=== PATIENT | male | born 1965 | race Caucasian/White ===

== ENCOUNTER 2018-09-17 17:20 | Inpatient (IN) | payer MEDICAID ==
[~2018-09-17] VITALS: Ht 165.1 cm; Wt 63.5 kg
[~2018-09-17 17:20] MED LIST: ACETAMINOPHEN-1 EAC1 ORAL; BACTRIM DS TAB1 EAC1 ORAL; CEPHALEXIN500 MG ORAL; IBUPROFEN200 M2 ORAL; NKM
[2018-09-17] MEDS ORDERED: UNOBMED (17:31)
[2018-09-17 17:36] VITALS: BP 124/76
[2018-09-17 18:40] LABS: ANION GAP 9 mmol/L (5-15); BLOOD UREA NITROGEN 4 mg/dL (7-18); CALCIUM 7.8 MG/DL (8.5-10.1); CARBON DIOXIDE 29 MMOL/L (21-32); CHLORIDE 96 MMOL/L (98-107); CREATININE 0.8 MG/DL (0.55-1.30); POTASSIUM 3.4 MMOL/L (3.5-5.1); SODIUM 133 MMOL/L (136-145)
[2018-09-17 18:51] LABS: ALANINE AMINOTRANSFERASE 204 U/L (12-78); ALBUMIN 2.6 G/DL (3.4-5.0); ALBUMIN/GLOBULIN RATIO 0.6 (1.0-2.7); ALKALINE PHOSPHATASE 147 U/L (46-116); ASPARTATE AMINO TRANSFERASE 459 U/L (15-37); BILIRUBIN,TOTAL 7.3 MG/DL (0.2-1.0)
[2018-09-17 19:03] LABS: BILIRUBIN,DIRECT 5.1 MG/DL (0.0-0.3)
[2018-09-17 19:31] VITALS: BP 119/71
[2018-09-17 19:36] LABS: HEMATOCRIT 31.9 % (42.0-52.0); HEMOGLOBIN 11.2 G/DL (14.2-18.0); MEAN CORPUSCULAR VOLUME 97 FL (80-99); PLATELET COUNT 27 K/UL (150-450); RED CELL DISTRIBUTION WIDTH 15.9 % (11.6-14.8)
[2018-09-17 19:50] LABS: INR 2.2 (0.9-1.1)
--- NOTE | 2018-09-17 19:51 | Emergency Room Report ---
History of Present Illness General Chief Complaint: Nosebleed Source: Patient (Marysol Mccord) Present Illness HPI 52-year-old male presents with intermittent nosebleeds for the past 5 days. States that he has been bleeding from his left turbinates. States that the bleeding is self-limiting but last for about 10-15 minutes at a time. Patient also has a decreased appetite with frontal sinus pressure. Patient states that he has no modifying factors or symptoms. Denies any current n/v/f/c/d, abd pain , back pain, neck pain, photophobia, phonophobia, CP, or SOB (Marysol Mccord) Allergies: Coded Allergies: No Known Allergies (Unverified , 09/17/18) Patient History Past Medical History: see triage record Past Surgical History: none Pertinent Family History: none Reviewed Nursing Documentation: PMH: Agreed; PSxH: Agreed (Marysol Mccord) Nursing Documentation-PMH Past Medical History: No History, Except For Hx Cardiac Problems: No Hx Cancer: Yes Hx Gastrointestinal Problems: Yes - GASTRITIS, HYPERLIPIDEMIA Hx Neurological Problems: No - Cramps (Marysol Mccord) Review of Systems All Other Systems: negative except mentioned in HPI (Marysol Mccord) Physical Exam Vital Signs Date Time Temp Pulse Resp B/P (MAP) Pulse Ox O2 Delivery O2 Flow Rate FiO2 09/17/18 17:27 99.1 120 18 127/80 96 Room Air Sp02 EP Interpretation: reviewed, normal General Appearance: no apparent distress, alert, GCS 15, non-toxic Head: normocephalic, atraumatic Eyes: bilateral eye normal inspection, bilateral eye PERRL ENT: hearing grossly normal, normal pharynx, no angioedema, normal voice, TMs + canals normal, other - Gross dried blood from left turbinate. No active bleeding noted. Neck: full range of motion, supple/symm/no masses Respiratory: chest non-tender, lungs clear, normal breath sounds, speaking full sentences Cardiovascular #1: regular rate, rhythm, no edema Musculoskeletal: back normal, gait/station normal, normal range of motion Neurologic: alert, oriented x3, responsive, motor strength/tone normal, sensory intact, speech normal Skin: normal color, no rash, warm/dry, well hydrated (Marysol Mccord) Medical Decision Making PA Attestation Dr. Toussaint is my supervising physician with whom patient management has been discussed with. (Marysol Mccord) Medicare Attestation Patient was seen and examined by myself as well, patient is an extremity poor historian, review of medical records reveals significant cirrhosis, liver disease, initially patient reports that he has no other medical history other than gastritis. On further questioning patient now reports that he was at a clinic 6 months ago, reports that he was told that he had cirrhosis, patient's blood work today shows worsening findings with total bilirubin over 7.0, patient initially also denied alcohol intake, however the mother at bedside reports the patient drinks on a regular basis and is still drinking on a regular basis. Given the worsening findings patient's coagulopathy, further hydration was provided and patient requires further inpatient care, (Sharon Toussaint DO) Diagnostic Impression: Primary Impression: Liver failure Qualified Codes: K72.00 - Acute and subacute hepatic failure without coma Additional Impressions: Cirrhosis Coagulopathy Mild epistaxis ER Course 52-year-old male presents with epistaxis. Patient has a history of liver cirrhosis secondary to alcohol abuse. States that he is still chronic drinker to this day. Patient's last ultrasound evaluation by GI was 6 months ago. He presents today for epistaxis for the past 5 days that is self-limiting and intermittent. He also has nausea and decreased appetite. His CBC shows no serious anemia or signs of sepsis. His metabolic panel shows elevated liver enzymes with some mild electrolyte abnormalities. His total bili is in the sevens concerning for liver failure when compared to his previous labs. Patient also had abnormal coags. Ultrasound was performed which showed right renal cyst, sludge in the gallbladder, no gallbladder wall thickening or biliary duct dilation. The patient care was then assumed by Dr. Toussaint for higher acuity care and admission. Laboratory Tests Test 09/17/18 18:15 09/17/18 19:07 Sodium Level 133 MMOL/L (136-145) L Potassium Level 3.4 MMOL/L (3.5-5.1) L Chloride Level 96 MMOL/L (98-107) L Carbon Dioxide Level 29 MMOL/L (21-32) Anion Gap 9 mmol/L (5-15) Blood Urea Nitrogen 4 mg/dL (7-18) L Creatinine 0.8 MG/DL (0.55-1.30) Estimate Glomerular Filtration Rate > 60 mL/min (>60) Glucose Level 173 MG/DL (74-106) H Calcium Level 7.8 MG/DL (8.5-10.1) L Total Bilirubin 7.3 MG/DL (0.2-1.0) H Direct Bilirubin 5.1 MG/DL (0.0-0.3) H Aspartate Amino Transferase (AST) 459 U/L (15-37) H Alanine Aminotransferase (ALT) 204 U/L (12-78) H Alkaline Phosphatase 147 U/L (46-116) H Total Protein 6.7 G/DL (6.4-8.2) Albumin 2.6 G/DL (3.4-5.0) L Globulin 4.1 g/dL Albumin/Globulin Ratio 0.6 (1.0-2.7) L White Blood Count 7.0 K/UL (4.8-10.8) Red Blood Count 3.30 M/UL (4.70-6.10) L Hemoglobin 11.2 G/DL (14.2-18.0) L Hematocrit 31.9 % (42.0-52.0) L Mean Corpuscular Volume 97 FL (80-99) Mean Corpuscular Hemoglobin 34.0 PG (27.0-31.0) H Mean Corpuscular Hemoglobin Concent 35.1 G/DL (32.0-36.0) Red Cell Distribution Width 15.9 % (11.6-14.8) H Platelet Count 27 K/UL (150-450) L Mean Platelet Volume 10.8 FL (6.5-10.1) H Neutrophils (%) (Auto) % (45.0-75.0) Lymphocytes (%) (Auto) % (20.0-45.0) Monocytes (%) (Auto) % (1.0-10.0) Eosinophils (%) (Auto) % (0.0-3.0) Basophils (%) (Auto) % (0.0-2.0) Neutrophils % (Manual) Pending Lymphocytes % (Manual) Pending Platelet Estimate Pending Platelet Morphology Pending Prothrombin Time 22.1 SEC (9.30-11.50) H Prothrombin Time INR 2.2 (0.9-1.1) H PTT 37 SEC (23-33) H (Marysol Mccord) Labs Test 09/17/18 18:15 09/17/18 19:07 Sodium Level 133 MMOL/L (136-145) Potassium Level 3.4 MMOL/L (3.5-5.1) Chloride Level 96 MMOL/L (98-107) Carbon Dioxide Level 29 MMOL/L (21-32) Anion Gap 9 mmol/L (5-15) Blood Urea Nitrogen 4 mg/dL (7-18) Creatinine 0.8 MG/DL (0.55-1.30) Estimat Glomerular Filtration Rate > 60 mL/min (>60) Glucose Level 173 MG/DL (74-106) Calcium Level 7.8 MG/DL (8.5-10.1) Total Bilirubin 7.3 MG/DL (0.2-1.0) Direct Bilirubin 5.1 MG/DL (0.0-0.3) Aspartate Amino Transf (AST/SGOT) 459 U/L (15-37) Alanine Aminotransferase (ALT/SGPT) 204 U/L (12-78) Alkaline Phosphatase 147 U/L (46-116) Total Protein 6.7 G/DL (6.4-8.2) Albumin 2.6 G/DL (3.4-5.0) Globulin 4.1 g/dL Albumin/Globulin Ratio 0.6 (1.0-2.7) White Blood Count 7.0 K/UL (4.8-10.8) Red Blood Count 3.30 M/UL (4.70-6.10) Hemoglobin 11.2 G/DL (14.2-18.0) Hematocrit 31.9 % (42.0-52.0) Mean Corpuscular Volume 97 FL (80-99) Mean Corpuscular Hemoglobin 34.0 PG (27.0-31.0) Mean Corpuscular Hemoglobin Concent 35.1 G/DL (32.0-36.0) Red Cell Distribution Width 15.9 % (11.6-14.8) Platelet Count 27 K/UL (150-450) Mean Platelet Volume 10.8 FL (6.5-10.1) Neutrophils (%) (Auto) % (45.0-75.0) Lymphocytes (%) (Auto) % (20.0-45.0) Monocytes (%) (Auto) % (1.0-10.0) Eosinophils (%) (Auto) % (0.0-3.0) Basophils (%) (Auto) % (0.0-2.0) Differential Total Cells Counted 100 Neutrophils % (Manual) 38 % (45-75) Lymphocytes % (Manual) 50 % (20-45) Monocytes % (Manual) 9 % (1-10) Eosinophils % (Manual) 2 % (0-3) Basophils % (Manual) 1 % (0-2) Band Neutrophils 0 % (0-8) Platelet Estimate Decreased Platelet Morphology Normal Hypochromasia 1+ Anisocytosis 1+ Prothrombin Time 22.1 SEC (9.30-11.50) Prothromb Time International Ratio 2.2 (0.9-1.1) Activated Partial Thromboplast Time 37 SEC (23-33) (Sharon Toussaint DO) Rhythm Strip Diag. Results EP Interpretation: yes Rate: 110 Rhythm: no PVC's, no ectopy, other - Sinus tach (Sharon Toussaint DO) CT/MRI/US Diagnostic Results CT/MRI/US Diagnostic Results : Imaging Test Ordered: CT Head w/o Contrast Impression CT HEAD Without Contrast: No intracranial hemorrhage, mass effect or CT evidence of acute infarct Ventricles are within limits and midline Small mucous retention cyst visualized left maxillary sinus Mastoids are clear (Marysol Mccord) Last Vital Signs Date Time Temp Pulse Resp B/P (MAP) Pulse Ox O2 Delivery O2 Flow Rate FiO2 09/17/18 17:36 98.9 108 16 124/76 98 Room Air (Marysol Mccord) Status: improved (Sharon Toussaint DO) Disposition: XFER SHT-TRM HOSP Condition: Serious Marysol Mccord Sep 17, 2018 19:51 Sharon Toussaint DO Sep 17, 2018 21:25
[2018-09-17] MEDS ORDERED: LORazepam Inj 2mg/ml 1ml IV ONE (21:30)
[2018-09-17] MEDS ORDERED: Thiamine 100mg tab ORAL ONE (21:30)
[2018-09-17 21:36] VITALS: BP 103/64
[2018-09-18] MEDS ORDERED: Morphine Sulfate 2mg/ml Inj(IV/IM USE ONLY) IVP PRN (00:15)
[2018-09-18] MEDS ORDERED: Folic Acid 1 MG, Magnesium Sulfate 2,000 MG, Multivitamin - 12 Injection 10 ML in Sodiu... IV ONE ×2 (00:15→09:00)
[2018-09-18 00:30] VITALS: BP 119/77
[2018-09-18] MEDS ORDERED: Thiamine 100mg in D5W 55ml IVPB SCH ×2 (00:30→09:00)
[2018-09-18 04:00] VITALS: BP 133/85
[2018-09-18 07:31] LABS: HEMOGLOBIN 11.6 G/DL (14.2-18.0); MEAN CORPUSCULAR VOLUME 98 FL (80-99)
[2018-09-18 07:42] LABS: ANION GAP 9 mmol/L (5-15); BLOOD UREA NITROGEN 4 mg/dL (7-18); CALCIUM 7.4 MG/DL (8.5-10.1); CARBON DIOXIDE 28 MMOL/L (21-32); CHLORIDE 99 MMOL/L (98-107); CREATININE 0.7 MG/DL (0.55-1.30); POTASSIUM 3.6 MMOL/L (3.5-5.1); SODIUM 136 MMOL/L (136-145)
[2018-09-18 07:44] LABS: HEMATOCRIT 33.8 % (42.0-52.0); PLATELET COUNT 31 K/UL (150-450); RED BLOOD COUNT 3.45 M/UL (4.70-6.10); RED CELL DISTRIBUTION WIDTH 16.7 % (11.6-14.8)
[2018-09-18 08:00] VITALS: BP 126/79
--- NOTE | 2018-09-18 08:41 | Consultation ---
Consult Note Consult Note asked to eval at the request of Dr Lucia for fluid managemeny and low Na Chief Complaint: Nosebleed 52-year-old male presents with intermittent nosebleeds for the past 5 days. States that he has been bleeding from his left turbinates. States that the bleeding is self-limiting but last for about 10-15 minutes at a time. Patient also has a decreased appetite with frontal sinus pressure. Patient states that he has no modifying factors or symptoms. Denies any current n/v/f/c/d, abd pain , back pain, neck pain, photophobia, phonophobia, CP, or SOB No Known Allergies (Unverified , 09/17/18) Past Medical History: No History, Except For Hx Gastrointestinal Problems: Yes - GASTRITIS, HYPERLIPIDEMIA Hx Neurological Problems: No - Cramps examined Turkish speaker has liver cirrhosis stigmata Assessment/Plan Coagulopathy due to liver pathology: INR 2.2 Thrombocytopenia due to cirrhosis mild anemia mild epistaxis mild HypoNatremia due to cirrhosis and low Albumin High LFTs abd Bili lactulose protonix Aldactone per GI and Hematology Vit K 2gr Na diet Serg Baumann MD Sep 18, 2018 08:41
--- NOTE | 2018-09-18 09:05 | Diagnostic Imaging Report ---
Indication: Headache, pain Technique: Continuous helical CT scanning of the head was performed utilizing automated exposure control without intravenous contrast material. Axial and coronal reconstructions were obtained. Comparison: None CT dose: Total DLP 1432.39 mGycm; CTDI vol 70.38 mGy Findings: There is no acute intracranial hemorrhage, mass effect or cortical edema. There is no shift of the midline structures. The ventricles, cisterns and sulci are within normal limits for age. Visualized mastoid air cells are clear. A small mucus retention cyst is visualized in the left maxillary sinus. Remainder the visualized paranasal sinuses are clear. Imaged portions of the orbits grossly unremarkable. No focal lesions of the bony calvarium or soft tissues of the scalp are seen. Impression: No evidence of acute intracranial hemorrhage, mass effect, midline shift or CT evidence of acute territorial infarct. MRI may be obtained for more sensitive evaluation as clinically indicated. Small mucous retention cyst in the left maxillary sinus. This corresponds with the [facility]rad preliminary report. The CT scanner at [facility] is accredited by the [employer] and the scans are performed using protocols designed to limit radiation exposure to as low as reasonably achievable to attain images of sufficient resolution adequate for diagnostic evaluation.
[2018-09-18] MEDS: Lactulose 20gm/30ml UDC ORAL SCH ×3 (09:26→17:54)
[2018-09-18] MEDS: Spironolactone 25mg tab ORAL SCH ×2 (09:26→23:02)
[2018-09-18] MEDS: Thiamine 100mg tab ORAL SCH (09:26)
[2018-09-18 09:58] LABS: AMMONIA 48 umol/L (11-32)
[2018-09-18 10:07] LABS: APPEARANCE,URINE CLEAR; BILIRUBIN, URINE NEGATIVE (NEGATIVE); COLOR,URINE BROWN; GLUCOSE, URINE (UA) NEGATIVE (NEGATIVE); KETONES,URINE NEGATIVE (NEGATIVE); LEUKOCYTE ESTERASE ,URINE NEGATIVE (NEGATIVE); NITRITE,URINE NEGATIVE (NEGATIVE); PH,URINE 7 (4.5-8.0); PROTEIN,URINE NEGATIVE (NEGATIVE); UROBILINOGEN,URINE 4 MG/DL (0.0-1.0)
[2018-09-18 10:13] LABS: ALANINE AMINOTRANSFERASE 208 U/L (12-78); ALBUMIN 2.6 G/DL (3.4-5.0); ALKALINE PHOSPHATASE 149 U/L (46-116); ASPARTATE AMINO TRANSFERASE 441 U/L (15-37); BILIRUBIN,DIRECT 4.3 MG/DL (0.0-0.3); BILIRUBIN,TOTAL 7.1 MG/DL (0.2-1.0); CHOLESTEROL 101 MG/DL (< 200); GAMMA GLUTAMYL TRANSPEPTIDASE 1980 U/L (5-85); HDL CHOLESTEROL 8 MG/DL (40-60); TRIGLYCERIDES 214 MG/DL (30-150)
[2018-09-18] MEDS: Phytonadione 10 mg/mL 1ml amp SUBQ SCH (10:17)
--- NOTE | 2018-09-18 10:30 | GI Initial Consult Note ---
History of Present Illness General Date patient seen: Sep 18, 2018 Time patient seen: 10:25 Reason for Hospitalization: Nosebleed Referring physician: ANALY DELONG Reason for Consultation: Cirrhosis Present Illness HPI 52-year-old male presents with intermittent nosebleeds for the past 5 days. States that he has been bleeding from his left turbinates. States that the bleeding is self-limiting but last for about 10-15 minutes at a time. Patient also has a decreased appetite with frontal sinus pressure. Patient states that he has no modifying factors or symptoms. Denies any current n/v/f/c/d, abd pain , back pain, neck pain, photophobia, phonophobia, CP, or SOB GI consulted for cirrhosis. Patient seen, awake alert and oriented x4 no apparent distress with no active signs of nausea or vomiting. Patient presents with active epistaxis. Patient denies any abdominal pain, denies any nausea vomiting or diarrhea. Patient has a history of alcohol abuse, stated his last alcoholic drink was yesterday. Labs reviewed; white count of 4, hemoglobin of 11, platelet count of 31, INR of 2.2. Patient denies any history of endoscopic or colonoscopy Home Meds Reported Medications Unable to Obtain Medications (UNABLE TO OBTAIN MEDS) 1 Ea Ea 09/17/18 Acetaminophen With Codeine (T#3) (TYLENOL #3 TAB*) 1 Each Tablet, 2 TAB ORAL Q6H PRN for For Pain, TAB 11/19/13 Acetaminophen With Codeine (T#3) (TYLENOL #3 TAB*) 1 Each Tablet, 1 TAB ORAL Q4H PRN for For Pain, TAB 11/19/13 Med list reviewed/reconciled: Yes Allergies: Coded Allergies: No Known Allergies (Unverified , 09/17/18) Patient History History Provided By: Patient, Medical Record PMH Narrative Hx Cardiac Problems: No Hx Cancer: Yes Hx Gastrointestinal Problems: Yes - GASTRITIS, HYPERLIPIDEMIA Hx Neurological Problems: No - Cramps Past Surgical History: none Social History: Reports: alcohol use Review of Systems All Other Systems: negative except mentioned in HPI Physical Exam Vital Signs Date Time Temp Pulse Resp B/P (MAP) Pulse Ox O2 Delivery O2 Flow Rate FiO2 09/17/18 17:27 99.1 120 18 127/80 96 Room Air Sp02 EP Interpretation: reviewed, normal Labs Laboratory Tests Test 4/16/19 18:15 09/17/18:07 09/18/18 07:25 09/18/18 09:20 Sodium Level 133 MMOL/L (136-145) L 136 MMOL/L (136-145) Potassium Level 3.4 MMOL/L (3.5-5.1) L 3.6 MMOL/L (3.5-5.1) Chloride Level 96 MMOL/L (98-107) L 99 MMOL/L (98-107) Carbon Dioxide Level 29 MMOL/L (21-32) 28 MMOL/L (21-32) Anion Gap 9 mmol/L (5-15) 9 mmol/L (5-15) Blood Urea Nitrogen 4 mg/dL (7-18) L 4 mg/dL (7-18) L Creatinine 0.8 MG/DL (0.55-1.30) 0.7 MG/DL (0.55-1.30) Estimat Glomerular Filtration Rate > 60 mL/min (>60) > 60 mL/min (>60) Glucose Level 173 MG/DL (74-106) H 112 MG/DL (74-106) H Calcium Level 7.8 MG/DL (8.5-10.1) L 7.4 MG/DL (8.5-10.1) L Total Bilirubin 7.3 MG/DL (0.2-1.0) H 7.1 MG/DL (0.2-1.0) H Direct Bilirubin 5.1 MG/DL (0.0-0.3) H 4.3 MG/DL (0.0-0.3) H Aspartate Amino Transf (AST/SGOT) 459 U/L (15-37) H 441 U/L (15-37) H Alanine Aminotransferase (ALT/SGPT) 204 U/L (12-78) H 208 U/L (12-78) H Alkaline Phosphatase 147 U/L (46-116) H 149 U/L (46-116) H Total Protein 6.7 G/DL (6.4-8.2) 6.9 G/DL (6.4-8.2) Albumin 2.6 G/DL (3.4-5.0) L 2.6 G/DL (3.4-5.0) L Globulin 4.1 g/dL Albumin/Globulin Ratio 0.6 (1.0-2.7) L White Blood Count 7.0 K/UL (4.8-10.8) 4.0 K/UL (4.8-10.8) L Red Blood Count 3.30 M/UL (4.70-6.10) L 3.45 M/UL (4.70-6.10) L Hemoglobin 11.2 G/DL (14.2-18.0) L 11.6 G/DL (14.2-18.0) L Hematocrit 31.9 % (42.0-52.0) L 33.8 % (42.0-52.0) L Mean Corpuscular Volume 97 FL (80-99) 98 FL (80-99) Mean Corpuscular Hemoglobin 34.0 PG (27.0-31.0) H 33.6 PG (27.0-31.0) H Mean Corpuscular Hemoglobin Concent 35.1 G/DL (32.0-36.0) 34.3 G/DL (32.0-36.0) Red Cell Distribution Width 15.9 % (11.6-14.8) H 16.7 % (11.6-14.8) H Platelet Count 27 K/UL (150-450) L 31 K/UL (150-450) L Mean Platelet Volume 10.8 FL (6.5-10.1) H 10.6 FL (6.5-10.1) H Neutrophils (%) (Auto) % (45.0-75.0) % (45.0-75.0) Lymphocytes (%) (Auto) % (20.0-45.0) % (20.0-45.0) Monocytes (%) (Auto) % (1.0-10.0) % (1.0-10.0) Eosinophils (%) (Auto) % (0.0-3.0) % (0.0-3.0) Basophils (%) (Auto) % (0.0-2.0) % (0.0-2.0) Differential Total Cells Counted 100 100 Neutrophils % (Manual) 38 % (45-75) L 72 % (45-75) Lymphocytes % (Manual) 50 % (20-45) H 20 % (20-45) Monocytes % (Manual) 9 % (1-10) 4 % (1-10) Eosinophils % (Manual) 2 % (0-3) 1 % (0-3) Basophils % (Manual) 1 % (0-2) 3 % (0-2) H Band Neutrophils 0 % (0-8) 0 % (0-8) Platelet Estimate Decreased L Decreased L Platelet Morphology Normal Normal Hypochromasia 1+ Anisocytosis 1+ Prothrombin Time 22.1 SEC (9.30-11.50) H Prothromb Time International Ratio 2.2 (0.9-1.1) H Activated Partial Thromboplast Time 37 SEC (23-33) H Macrocytosis 1+ Target Cells 3+ Stomatocytes 1+ Urine Color Brown Urine Appearance Clear Urine pH 7 (4.5-8.0) Urine Specific [place] 1.010 (1.005-1.035) Urine Protein Negative (NEGATIVE) Urine Glucose (UA) Negative (NEGATIVE) Urine Ketones Negative (NEGATIVE) Urine Blood 4+ (NEGATIVE) H Urine Nitrite Negative (NEGATIVE) Urine Bilirubin Negative (NEGATIVE) Urine Urobilinogen 4 MG/DL (0.0-1.0) H Urine Leukocyte Esterase Negative (NEGATIVE) Urine RBC 0-2 /HPF (0 - 0) H Urine WBC 0-2 /HPF (0 - 0) Urine Squamous Epithelial Cells Occasional /LPF Urine Bacteria Occasional /HPF (NONE) Urine Random Sodium 120 mmol/L (20-110) H Hemoglobin A1c 5.2 % (4.3-6.0) Uric Acid 5.2 MG/DL (2.6-7.2) Phosphorus Level 3.0 MG/DL (2.5-4.9) Magnesium Level 1.2 MG/DL (1.8-2.4) L Gamma Glutamyl Transpeptidase 1980 U/L (5-85) H Ammonia 48 umol/L (11-32) H C-Reactive Protein, Quantitative < 0.4 mg/dL (0.00-0.90) Pro-B-Type Natriuretic Peptide 27 pg/mL (0-125) Triglycerides Level 214 MG/DL (30-150) H Cholesterol Level 101 MG/DL (< 200) LDL Cholesterol 74 mg/dL (<100) HDL Cholesterol 8 MG/DL (40-60) L Cholesterol/HDL Ratio 12.6 (3.3-4.4) H Vitamin B12 Level Pending Folate Pending Thyroid Stimulating Hormone (TSH) 2.167 uiU/mL (0.358-3.740) General Appearance: well appearing, no apparent distress, alert, other - Jaundice Head: normocephalic EENT: PERRL/EOMI, normal ENT inspection Neck: supple Respiratory: normal breath sounds, no respiratory distress Cardiovascular: normal rate Gastrointestinal: normal inspection, non tender, soft, normal bowel sounds, non -distended Rectal: deferred Genitourinary: deferred Musculoskeletal: normal inspection, back normal Neurologic: normal inspection, alert, oriented x3, responsive Psychiatric: normal inspection, judgement/insight normal, memory normal Skin: normal inspection, normal color, no rash, warm/dry, palpation normal, well hydrated Lymphatic: normal inspection, no adenopathy Current Medications Current Medications Medications (Trade) Dose Ordered Sig/Tracey Route PRN Reason Start Time Stop Time Status Last Admin Dose Admin Folic Acid (Folate) 1 mg DAILY ORAL 09/18/18 09:00 10/18/18 08:59 09/18/18 09:26 Folic Acid 1 mg/ Magnesium Sulfate 2000 mg/ Multivitamins 10 ml/Sodium Chloride 1,014.2 ml @ 70 mls/hr ONCE ONCE IV 09/18/18 09:00 09/18/18 23:29 09/18/18 09:36 Lactulose (Cephulac) 20 gm THREE TIMES A DAY ORAL 09/18/18 09:00 10/18/18 08:59 09/18/18 09:26 Lorazepam (Ativan 2mg/ml 1ml) 1 mg Q2H PRN IV For Seizures or Withdrawal Sym 09/18/18 00:15 09/25/18 00:14 Ondansetron HCl (Zofran) 4 mg Q6H PRN IVP Nausea & Vomiting 09/18/18 00:15 10/18/18 00:14 Pantoprazole (Protonix) 40 mg EVERY 12 HOURS ORAL 09/18/18 09:00 10/18/18 08:59 09/18/18 09:26 Phytonadione (Vitamin K) 10 mg DAILY@1000 SUBQ 09/18/18 10:00 09/20/18 10:01 09/18/18 10:17 Spironolactone (Aldactone) 25 mg EVERY 12 HOURS ORAL 09/18/18 09:00 10/18/18 08:59 09/18/18 09:26 Thiamine HCl (Vitamin B1) 100 mg DAILY ORAL 09/18/18 09:00 10/18/18 08:59 09/18/18 09:26 GI: Plan Problems: (1) Pancytopenia (2) Liver failure (3) Cirrhosis (4) Mild epistaxis (5) Coagulopathy Plan Will consider endoscopy pending workup Obtain abdominal ultrasound anemia work up OB stool r/o GI bleed monitor H&H, prn transfusions bowel regime ppi vit K Banana bag Ativan as needed Patient instructed to avoid alcohol fu labs, hepatitis panel Discussed with Dr. Kirby. Thank you for this patient referral, we will follow. The patient was seen and examined at bedside and all new and available data was reviewed in the patients chart. I agree with the above findings, impression and plan. (Patient seen earlier today. Signature stamp does not reflect patient encounter time.). - MD Petrona De [facility] SPECTROMET[facility] MANAGER Sep 18, 2018 10:30
--- NOTE | 2018-09-18 10:35 | Initial Psychiatric Evaluation ---
Psychiatry Consultation Psychiatry Consultation Chief Complaint: Nosebleed Allergies: Coded Allergies: No Known Allergies (Unverified , 09/17/18) Past Psychiatric History: 52-year-old male with hx of alcohol dependence and liver dx who was admitted for the recurrent nose bleed. the pt was anxious, and tremulous. he has tachycardia and high bp. the pt stated that he has been drinking everyday for years. The lipid panel is consistent with alcoholic liver. Medication History Scheduled PRN Acetaminophen With Codeine (T#3) (Tylenol #3 Tab*), 1 TAB ORAL Q4H PRN for For Pain, (Reported) Acetaminophen With Codeine (T#3) (Tylenol #3 Tab*), 2 TAB ORAL Q6H PRN for For Pain, (Reported) Miscellaneous Medications Unable to Obtain Medications (Unable To Obtain Meds), (Reported) Patient History History Provided By: Patient, Medical Record, PMD Objective Data Height (Feet): 5 Height (Inches): 5.00 Weight (Pounds): 140 Appearance: no abnormalities noted Behavior Mannerisms: good eye contact Affect: constricted Mood: anxious, agitated Thought Process: goal-directed Suicidal Ideation: not present Assessment/Plan Problem List: (1) Alcohol dependence ICD Codes: F10.20 - Alcohol dependence, uncomplicated SNOMED: 82780353 (2) Alcohol withdrawal ICD Codes: F10.239 - Alcohol dependence with withdrawal, unspecified SNOMED: 486915171 Treatment Plan: thiamin 100mg po daily folate 1mg po daily librium ativan prn ciwa protocol Kenrick Erickson MD Sep 18, 2018 10:35
[2018-09-18] MEDS ORDERED: chlordiazePOXIDE 25mg Cap ORAL SCH (11:00)
[2018-09-18 12:00] VITALS: BP 144/89
--- NOTE | 2018-09-18 13:37 | Diagnostic Imaging Report ---
Indication: Abdominal pain Technique: Multiplanar grayscale and duplex Doppler evaluation of the abdomen Comparison: CT of the abdomen and pelvis 12/20/2014 Findings: Pancreas not well seen due to overlying bowel gas. Partially imaged portions appear grossly unremarkable. Liver is not enlarged. No focal hepatic mass lesion is appreciated sonographically. Portal vein is patent. There is fine nodularity of the liver. There is gallbladder sludge and some small layering gallstones. Gallbladder wall is upper limits for normal thickness. No pericholecystic fluid is identified. Sonographic Campa sign reported as negative. Common bile duct within normal limits. Kidneys are symmetric in size and demonstrate normal echogenicity. A simple appearing cyst is noted in the right kidney. There is no hydronephrosis or sonographically appreciable renal stone. Spleen normal in size. Imaged portions of the aorta and IVC normal in caliber. IMPRESSION: Cholelithiasis and gallbladder sludge. No pericholecystic fluid. Sonographic Campa sign reported as negative. No biliary ductal dilatation. Nodular contour of the liver suggesting cirrhosis. Patent main portal vein. Spleen normal in size. Subcentimeter simple appearing cyst in the right kidney. No evidence of hydronephrosis bilaterally. This corresponds with the [facility] preliminary report.
[2018-09-18] MEDS: chlordiazePOXIDE 25mg Cap ORAL SCH ×2 (14:54→23:01)
[2018-09-18 16:00] VITALS: BP 125/79
--- NOTE | 2018-09-18 17:36 | Consultation ---
History of Present Illness General Chief Complaint: Nosebleed Referring physician: ANALY DELONG Reason for Consultation: Cirrhosis Present Illness Allergies: Coded Allergies: No Known Allergies (Unverified , 09/17/18) Medication History Scheduled PRN Acetaminophen With Codeine (T#3) (Tylenol #3 Tab*), 1 TAB ORAL Q4H PRN for For Pain, (Reported) Acetaminophen With Codeine (T#3) (Tylenol #3 Tab*), 2 TAB ORAL Q6H PRN for For Pain, (Reported) Miscellaneous Medications Unable to Obtain Medications (Unable To Obtain Meds), (Reported) Patient History Healthcare decision maker Resuscitation status Full Code Advanced Directive on File Physical Exam Last 24 Hour Vital Signs Date Time Temp Pulse Resp B/P (MAP) Pulse Ox O2 Delivery O2 Flow Rate FiO2 09/18/18 12:00 99.8 112 21 144/89 (107) 97 09/18/18 09:00 Room Air 09/18/18 08:00 99.7 109 21 126/79 (95) 97 09/18/18 08:00 124 09/18/18 04:00 98.1 99 19 133/85 (101) 97 09/18/18 04:00 100 09/18/18 00:35 Room Air 09/18/18 00:30 98.6 104 18 119/77 (91) 98 09/18/18 00:00 116 09/17/18 22:03 130 16 Room Air 09/17/18 21:36 98.2 130 16 103/64 98 Room Air 09/17/18 19:31 98.9 114 16 119/71 98 Room Air 09/17/18 17:36 98.9 108 16 124/76 98 Room Air Laboratory Tests Test 09/17/18 18:15 09/17/18 19:07 09/18/18 07:25 09/18/18 09:20 Sodium Level 133 MMOL/L (136-145) L 136 MMOL/L (136-145) Potassium Level 3.4 MMOL/L (3.5-5.1) L 3.6 MMOL/L (3.5-5.1) Chloride Level 96 MMOL/L (98-107) L 99 MMOL/L (98-107) Carbon Dioxide Level 29 MMOL/L (21-32) 28 MMOL/L (21-32) Anion Gap 9 mmol/L (5-15) 9 mmol/L (5-15) Blood Urea Nitrogen 4 mg/dL (7-18) L 4 mg/dL (7-18) L Creatinine 0.8 MG/DL (0.55-1.30) 0.7 MG/DL (0.55-1.30) Estimat Glomerular Filtration Rate > 60 mL/min (>60) > 60 mL/min (>60) Glucose Level 173 MG/DL (74-106) H 112 MG/DL (74-106) H Calcium Level 7.8 MG/DL (8.5-10.1) L 7.4 MG/DL (8.5-10.1) L Total Bilirubin 7.3 MG/DL (0.2-1.0) H 7.1 MG/DL (0.2-1.0) H Direct Bilirubin 5.1 MG/DL (0.0-0.3) H 4.3 MG/DL (0.0-0.3) H Aspartate Amino Transf (AST/SGOT) 459 U/L (15-37) H 441 U/L (15-37) H Alanine Aminotransferase (ALT/SGPT) 204 U/L (12-78) H 208 U/L (12-78) H Alkaline Phosphatase 147 U/L (46-116) H 149 U/L (46-116) H Total Protein 6.7 G/DL (6.4-8.2) 6.9 G/DL (6.4-8.2) Albumin 2.6 G/DL (3.4-5.0) L 2.6 G/DL (3.4-5.0) L Globulin 4.1 g/dL Albumin/Globulin Ratio 0.6 (1.0-2.7) L White Blood Count 7.0 K/UL (4.8-10.8) 4.0 K/UL (4.8-10.8) L Red Blood Count 3.30 M/UL (4.70-6.10) L 3.45 M/UL (4.70-6.10) L Hemoglobin 11.2 G/DL (14.2-18.0) L 11.6 G/DL (14.2-18.0) L Hematocrit 31.9 % (42.0-52.0) L 33.8 % (42.0-52.0) L Mean Corpuscular Volume 97 FL (80-99) 98 FL (80-99) Mean Corpuscular Hemoglobin 34.0 PG (27.0-31.0) H 33.6 PG (27.0-31.0) H Mean Corpuscular Hemoglobin Concent 35.1 G/DL (32.0-36.0) 34.3 G/DL (32.0-36.0) Red Cell Distribution Width 15.9 % (11.6-14.8) H 16.7 % (11.6-14.8) H Platelet Count 27 K/UL (150-450) L 31 K/UL (150-450) L Mean Platelet Volume 10.8 FL (6.5-10.1) H 10.6 FL (6.5-10.1) H Neutrophils (%) (Auto) % (45.0-75.0) % (45.0-75.0) Lymphocytes (%) (Auto) % (20.0-45.0) % (20.0-45.0) Monocytes (%) (Auto) % (1.0-10.0) % (1.0-10.0) Eosinophils (%) (Auto) % (0.0-3.0) % (0.0-3.0) Basophils (%) (Auto) % (0.0-2.0) % (0.0-2.0) Differential Total Cells Counted 100 100 Neutrophils % (Manual) 38 % (45-75) L 72 % (45-75) Lymphocytes % (Manual) 50 % (20-45) H 20 % (20-45) Monocytes % (Manual) 9 % (1-10) 4 % (1-10) Eosinophils % (Manual) 2 % (0-3) 1 % (0-3) Basophils % (Manual) 1 % (0-2) 3 % (0-2) H Band Neutrophils 0 % (0-8) 0 % (0-8) Platelet Estimate Decreased L Decreased L Platelet Morphology Normal Normal Hypochromasia 1+ Anisocytosis 1+ Prothrombin Time 22.1 SEC (9.30-11.50) H Prothromb Time International Ratio 2.2 (0.9-1.1) H Activated Partial Thromboplast Time 37 SEC (23-33) H Macrocytosis 1+ Target Cells 3+ Stomatocytes 1+ Urine Color Brown Urine Appearance Clear Urine pH 7 (4.5-8.0) Urine Specific [place] 1.010 (1.005-1.035) Urine Protein Negative (NEGATIVE) Urine Glucose (UA) Negative (NEGATIVE) Urine Ketones Negative (NEGATIVE) Urine Blood 4+ (NEGATIVE) H Urine Nitrite Negative (NEGATIVE) Urine Bilirubin Negative (NEGATIVE) Urine Urobilinogen 4 MG/DL (0.0-1.0) H Urine Leukocyte Esterase Negative (NEGATIVE) Urine RBC 0-2 /HPF (0 - 0) H Urine WBC 0-2 /HPF (0 - 0) Urine Squamous Epithelial Cells Occasional /LPF Urine Bacteria Occasional /HPF (NONE) Urine Random Sodium 120 mmol/L (20-110) H Hemoglobin A1c 5.2 % (4.3-6.0) Uric Acid 5.2 MG/DL (2.6-7.2) Phosphorus Level 3.0 MG/DL (2.5-4.9) Magnesium Level 1.2 MG/DL (1.8-2.4) L Gamma Glutamyl Transpeptidase 1980 U/L (5-85) H Ammonia 48 umol/L (11-32) H C-Reactive Protein, Quantitative < 0.4 mg/dL (0.00-0.90) Pro-B-Type Natriuretic Peptide 27 pg/mL (0-125) Triglycerides Level 214 MG/DL (30-150) H Cholesterol Level 101 MG/DL (< 200) LDL Cholesterol 74 mg/dL (<100) HDL Cholesterol 8 MG/DL (40-60) L Cholesterol/HDL Ratio 12.6 (3.3-4.4) H Vitamin B12 Level 1966 PG/ML (193-986) H Folate 13.7 NG/ML (8.6-58.9) Thyroid Stimulating Hormone (TSH) 2.167 uiU/mL (0.358-3.740) Height (Feet): 5 Height (Inches): 5.00 Weight (Pounds): 140 Medications Current Medications Medications (Trade) Dose Ordered Sig/Tracey Route PRN Reason Start Time Stop Time Status Last Admin Dose Admin Chlordiazepoxide (Librium) 50 mg Q8HR ORAL 09/18/18 14:00 09/25/18 13:59 09/18/18 14:54 Folic Acid (Folate) 1 mg DAILY ORAL 09/18/18 09:00 10/18/18 08:59 09/18/18 09:26 Folic Acid 1 mg/ Magnesium Sulfate 2000 mg/ Multivitamins 10 ml/Sodium Chloride 1,014.2 ml @ 70 mls/hr ONCE ONCE IV 09/18/18 09:00 09/18/18 23:29 09/18/18 09:36 Lactulose (Cephulac) 20 gm THREE TIMES A DAY ORAL 09/18/18 09:00 10/18/18 08:59 09/18/18 13:12 Lorazepam (Ativan 2mg/ml 1ml) 1 mg Q2H PRN IV For Seizures or Withdrawal Sym 09/18/18 00:15 09/25/18 00:14 Ondansetron HCl (Zofran) 4 mg Q6H PRN IVP Nausea & Vomiting 09/18/18 00:15 10/18/18 00:14 Pantoprazole (Protonix) 40 mg EVERY 12 HOURS ORAL 09/18/18 09:00 10/18/18 08:59 09/18/18 09:26 Phytonadione (Vitamin K) 10 mg DAILY@1000 SUBQ 09/18/18 10:00 09/20/18 10:01 09/18/18 10:17 Spironolactone (Aldactone) 25 mg EVERY 12 HOURS ORAL 09/18/18 09:00 10/18/18 08:59 09/18/18 09:26 Thiamine HCl (Vitamin B1) 100 mg DAILY ORAL 09/18/18 09:00 10/18/18 08:59 09/18/18 09:26 Assessment/Plan Assessment: Hematology Consultation Time patient seen: 10:25 Reason for Hospitalization: Nosebleed Referring physician: ANALY DELONG Reason for Consultation: Coagulopathy, pancytopenia HPI 52-year-old male presents with intermittent nosebleeds for the past 5 days. States that he has been bleeding from his left turbinates. States that the bleeding is self-limiting but last for about 10-15 minutes at a time. Patient also has a decreased appetite with frontal sinus pressure. Patient states that he has no modifying factors or symptoms. Denies any current n/v/f/c/d, abd pain , back pain, neck pain, photophobia, phonophobia, CP, or SOB GI consulted for cirrhosis. Patient seen, awake alert and oriented x4 no apparent distress with no active signs of nausea or vomiting. Patient presents with active epistaxis. Patient denies any abdominal pain, denies any nausea vomiting or diarrhea. Patient has a history of alcohol abuse, stated his last alcoholic drink was yesterday. Labs reviewed; white count of 4, hemoglobin of 11, platelet count of 31, INR of 2.2. Patient denies any history of endoscopic or colonoscopy Home Meds Reported Medications Unable to Obtain Medications (UNABLE TO OBTAIN MEDS) 1 Ea Ea 09/17/18 Acetaminophen With Codeine (T#3) (TYLENOL #3 TAB*) 1 Each Tablet, 2 TAB ORAL Q6H PRN for For Pain, TAB 11/19/13 Acetaminophen With Codeine (T#3) (TYLENOL #3 TAB*) 1 Each Tablet, 1 TAB ORAL Q4H PRN for For Pain, TAB 11/19/13 Med list reviewed/reconciled: Yes Allergies: Coded Allergies: No Known Allergies (Unverified , 09/17/18) Patient History History Provided By: Patient, Medical Record PMH Narrative Hx Cardiac Problems: No Hx Cancer: Yes Hx Gastrointestinal Problems: Yes - GASTRITIS, HYPERLIPIDEMIA Hx Neurological Problems: No - Cramps Past Surgical History: none Social History: Reports: alcohol use Review of Systems All Other Systems: negative except mentioned in HPI Physical Exam Last 24 Hour Vital Signs Date Time Temp Pulse Resp B/P (MAP) Pulse Ox O2 Delivery O2 Flow Rate FiO2 09/18/18 12:00 99.8 112 21 144/89 (107) 97 09/18/18 09:00 Room Air 09/18/18 08:00 99.7 109 21 126/79 (95) 97 09/18/18 08:00 124 09/18/18 04:00 98.1 99 19 133/85 (101) 97 09/18/18 04:00 100 09/18/18 00:35 Room Air 09/18/18 00:30 98.6 104 18 119/77 (91) 98 09/18/18 00:00 116 09/17/18 22:03 130 16 Room Air 09/17/18 21:36 98.2 130 16 103/64 98 Room Air 09/17/18 19:31 98.9 114 16 119/71 98 Room Air 09/17/18 17:36 98.9 108 16 124/76 98 Room Air Labs Laboratory Tests Test 09/17/18 18:15 09/17/18 19:07 09/18/18 07:25 09/18/18 09:20 Sodium Level 133 MMOL/L (136-145) L 136 MMOL/L (136-145) Potassium Level 3.4 MMOL/L (3.5-5.1) L 3.6 MMOL/L (3.5-5.1) Chloride Level 96 MMOL/L (98-107) L 99 MMOL/L (98-107) Carbon Dioxide Level 29 MMOL/L (21-32) 28 MMOL/L (21-32) Anion Gap 9 mmol/L (5-15) 9 mmol/L (5-15) Blood Urea Nitrogen 4 mg/dL (7-18) L 4 mg/dL (7-18) L Creatinine 0.8 MG/DL (0.55-1.30) 0.7 MG/DL (0.55-1.30) Estimat Glomerular Filtration Rate > 60 mL/min (>60) > 60 mL/min (>60) Glucose Level 173 MG/DL (74-106) H 112 MG/DL (74-106) H Calcium Level 7.8 MG/DL (8.5-10.1) L 7.4 MG/DL (8.5-10.1) L Total Bilirubin 7.3 MG/DL (0.2-1.0) H 7.1 MG/DL (0.2-1.0) H Direct Bilirubin 5.1 MG/DL (0.0-0.3) H 4.3 MG/DL (0.0-0.3) H Aspartate Amino Transf (AST/SGOT) 459 U/L (15-37) H 441 U/L (15-37) H Alanine Aminotransferase (ALT/SGPT) 204 U/L (12-78) H 208 U/L (12-78) H Alkaline Phosphatase 147 U/L (46-116) H 149 U/L (46-116) H Total Protein 6.7 G/DL (6.4-8.2) 6.9 G/DL (6.4-8.2) Albumin 2.6 G/DL (3.4-5.0) L 2.6 G/DL (3.4-5.0) L Globulin 4.1 g/dL Albumin/Globulin Ratio 0.6 (1.0-2.7) L White Blood Count 7.0 K/UL (4.8-10.8) 4.0 K/UL (4.8-10.8) L Red Blood Count 3.30 M/UL (4.70-6.10) L 3.45 M/UL (4.70-6.10) L Hemoglobin 11.2 G/DL (14.2-18.0) L 11.6 G/DL (14.2-18.0) L Hematocrit 31.9 % (42.0-52.0) L 33.8 % (42.0-52.0) L Mean Corpuscular Volume 97 FL (80-99) 98 FL (80-99) Mean Corpuscular Hemoglobin 34.0 PG (27.0-31.0) H 33.6 PG (27.0-31.0) H Mean Corpuscular Hemoglobin Concent 35.1 G/DL (32.0-36.0) 34.3 G/DL (32.0-36.0) Red Cell Distribution Width 15.9 % (11.6-14.8) H 16.7 % (11.6-14.8) H Platelet Count 27 K/UL (150-450) L 31 K/UL (150-450) L Mean Platelet Volume 10.8 FL (6.5-10.1) H 10.6 FL (6.5-10.1) H Neutrophils (%) (Auto) % (45.0-75.0) % (45.0-75.0) Lymphocytes (%) (Auto) % (20.0-45.0) % (20.0-45.0) Monocytes (%) (Auto) % (1.0-10.0) % (1.0-10.0) Eosinophils (%) (Auto) % (0.0-3.0) % (0.0-3.0) Basophils (%) (Auto) % (0.0-2.0) % (0.0-2.0) Differential Total Cells Counted 100 100 Neutrophils % (Manual) 38 % (45-75) L 72 % (45-75) Lymphocytes % (Manual) 50 % (20-45) H 20 % (20-45) Monocytes % (Manual) 9 % (1-10) 4 % (1-10) Eosinophils % (Manual) 2 % (0-3) 1 % (0-3) Basophils % (Manual) 1 % (0-2) 3 % (0-2) H Band Neutrophils 0 % (0-8) 0 % (0-8) Platelet Estimate Decreased L Decreased L Platelet Morphology Normal Normal Hypochromasia 1+ Anisocytosis 1+ Prothrombin Time 22.1 SEC (9.30-11.50) H Prothromb Time International Ratio 2.2 (0.9-1.1) H Activated Partial Thromboplast Time 37 SEC (23-33) H Macrocytosis 1+ Target Cells 3+ Stomatocytes 1+ Urine Color Brown Urine Appearance Clear Urine pH 7 (4.5-8.0) Urine Specific [place] 1.010 (1.005-1.035) Urine Protein Negative (NEGATIVE) Urine Glucose (UA) Negative (NEGATIVE) Urine Ketones Negative (NEGATIVE) Urine Blood 4+ (NEGATIVE) H Urine Nitrite Negative (NEGATIVE) Urine Bilirubin Negative (NEGATIVE) Urine Urobilinogen 4 MG/DL (0.0-1.0) H Urine Leukocyte Esterase Negative (NEGATIVE) Urine RBC 0-2 /HPF (0 - 0) H Urine WBC 0-2 /HPF (0 - 0) Urine Squamous Epithelial Cells Occasional /LPF Urine Bacteria Occasional /HPF (NONE) Urine Random Sodium 120 mmol/L (20-110) H Hemoglobin A1c 5.2 % (4.3-6.0) Uric Acid 5.2 MG/DL (2.6-7.2) Phosphorus Level 3.0 MG/DL (2.5-4.9) Magnesium Level 1.2 MG/DL (1.8-2.4) L Gamma Glutamyl Transpeptidase 1980 U/L (5-85) H Ammonia 48 umol/L (11-32) H C-Reactive Protein, Quantitative < 0.4 mg/dL (0.00-0.90) Pro-B-Type Natriuretic Peptide 27 pg/mL (0-125) Triglycerides Level 214 MG/DL (30-150) H Cholesterol Level 101 MG/DL (< 200) LDL Cholesterol 74 mg/dL (<100) HDL Cholesterol 8 MG/DL (40-60) L Cholesterol/HDL Ratio 12.6 (3.3-4.4) H Vitamin B12 Level Pending Folate Pending Thyroid Stimulating Hormone (TSH) 2.167 uiU/mL (0.358-3.740) Physical Exam: Vitals: reviewed General Appearance: NAD ++ jaundice HEENT: normocephalic, atraumatic Neck: non-tender, normal alignment Respiratory/Chest: normal breath sounds bilaterally Cardiovascular/Chest: normal peripheral pulses, normal rate Abdomen: normal bowel sounds, soft, nontender Extremities: normal range of motion Current Medications Current Medications Medications (Trade) Dose Ordered Sig/Tracey Route PRN Reason Start Time Stop Time Status Last Admin Dose Admin Folic Acid (Folate) 1 mg DAILY ORAL 09/18/18 09:00 10/18/18 08:59 09/18/18 09:26 Folic Acid 1 mg/ Magnesium Sulfate 2000 mg/ Multivitamins 10 ml/Sodium Chloride 1,014.2 ml @ 70 mls/hr ONCE ONCE IV 09/18/18 09:00 09/18/18 23:29 09/18/18 09:36 Lactulose (Cephulac) 20 gm THREE TIMES A DAY ORAL 09/18/18 09:00 10/18/18 08:59 09/18/18 09:26 Lorazepam (Ativan 2mg/ml 1ml) 1 mg Q2H PRN IV For Seizures or Withdrawal Sym 09/18/18 00:15 09/25/18 00:14 Ondansetron HCl (Zofran) 4 mg Q6H PRN IVP Nausea & Vomiting 09/18/18 00:15 10/18/18 00:14 Pantoprazole (Protonix) 40 mg EVERY 12 HOURS ORAL 09/18/18 09:00 10/18/18 08:59 09/18/18 09:26 Phytonadione (Vitamin K) 10 mg DAILY@1000 SUBQ 09/18/18 10:00 09/20/18 10:01 09/18/18 10:17 Spironolactone (Aldactone) 25 mg EVERY 12 HOURS ORAL 09/18/18 09:00 10/18/18 08:59 09/18/18 09:26 Thiamine HCl (Vitamin B1) 100 mg DAILY ORAL 09/18/18 09:00 10/18/18 08:59 09/18/18 09:26 Assessment and plan: # Pancytopenia -- multiple etiologies could be related to underlying liver disease, does have a history of cirrhosis due to etoh use and the abd us redemosntrates it at this time --> peripheral smear has been ordered and does not show significant abnormalities --> Medications have been reviewed --> Continue to monitor for improvement, trend cbc --> Hep panel and HIV have been ordered --> US abd ordered to r/o cirrhosis and hepatosplenomegaly --> consider other causes, infections that could contribute --> reverse isolation if ANC is <2000 --> Give neupogen if ANC <1000 --> Transfuse if hgb <7, with 1 unit prbc # Coagulation defect, multifactorial usually related to poor PO intake versus medications, v most likely cirrhosis --> administer Vitamin K 10mg sq x 3 days --> hold off on ffp unless active procedure/bleeding, first begin with vit K 10 --> mixing study as needed # NAsal bleed, epistaxis --> on exam 09/18/18 had improved drastically --> if recurs, consider platelelts if <50k --> also consider vit K x 3 days to bring down inr # Liver failure with cirrhosis # ETOH withdrawal --> protonix, ativan, thiamine, folic acid The timing of this note does not necessarily reflect the time of the patient was seen. Greatly appreciate consultation! Garrison Storm MD Sep 18, 2018 17:36
[2018-09-18 20:00] VITALS: BP 127/73
--- NOTE | 2018-09-18 23:29 | Diagnostic Imaging Report ---
APPROVED REPORT CPT Code: 18565 Present Symptoms Comments: Screening BILATERAL: Imaging reveals a patent deep venous system bilaterally. There is no evidence of thrombus within the common femoral, superficial femoral, popliteal or tibial segments. The greater saphenous veins are within normal limits. Doppler indicates normal spontaneous flow within these segments.
[2018-09-19] VITALS: BP 113/72
[2018-09-19 04:00] VITALS: BP 105/62
--- NOTE | 2018-09-19 05:15 | History and Physical Report ---
DATE OF ADMISSION: 09/17/2018 HISTORY OF PRESENT ILLNESS: The patient has alcoholic liver disease and alcohol withdrawal for a few days, but has currently bleeding, has also low platelet count, alcohol withdrawal symptoms and also has cirrhosis, admitted to rule out alcohol withdrawal. The patient is a very poor historian. He is admitted for those reasons. The patient also has a history of pancytopenia most likely due to alcoholic liver disease, alcohol dependence. PAST SURGICAL HISTORY: None known. ALLERGIES: No known allergies. MEDICATIONS: He cannot tell what medications he takes, noncompliant. FAMILY HISTORY: Noncontributory. SOCIAL HISTORY: History of alcohol abuse. Denies drug abuse. Denies history of smoking. REVIEW OF SYSTEMS: HEENT: Denies headaches. RESPIRATORY: Denies shortness of breath. Denies cough. CARDIOVASCULAR: Denies chest pain. GASTROINTESTINAL: Reports very mild abdominal pains. Denies nausea, vomiting, diarrhea. EXTREMITIES: Denies pain. 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 PHYSICAL EXAMINATION: VITAL SIGNS: Temperature 98.1, pulse is 99, and blood pressure 123/85. HEENT: PERRLA. NECK: Supple. No lymphadenopathy. CHEST: Clear to auscultation. CARDIOVASCULAR: Regular rate and rhythm. No murmurs or extra sounds. GASTROINTESTINAL: Distended . Positive fluid wave. Otherwise abdomen is soft, nontender. EXTREMITIES: No edema. Reflexes equal on both sides. Moves all four extremities. Sensory is intact to light touch. LABORATORY DATA: WBC 7, hemoglobin 11.2, and platelets of 27. Sodium 133, potassium 3.4, BUN of 4, creatinine 0.8. AST , ALT of 204, alkaline phosphatase 147, total bilirubin 7.3. ASSESSMENT: 1. Cirrhosis of liver. 2. Elevated LFTs. 3. Low potassium and low sodium. I have asked Dr. Erickson, Dr. Baumann, Dr. Duffy, Dr. Kirby, and Dr. Garrison Storm to see the patient for the treatment and diagnoses as well as for the treatment of the above-mentioned problems. Sharon Fink M.D. DR: Iwona JOB#: [id number] CC:
[2018-09-19] MEDS: chlordiazePOXIDE 25mg Cap ORAL SCH ×3 (06:18→21:23)
[2018-09-19 07:28] LABS: HEMATOCRIT 33.1 % (42.0-52.0); HEMOGLOBIN 11.2 G/DL (14.2-18.0); MEAN CORPUSCULAR VOLUME 100 FL (80-99); PLATELET COUNT 33 K/UL (150-450); RED BLOOD COUNT 3.31 M/UL (4.70-6.10); RED CELL DISTRIBUTION WIDTH 17.5 % (11.6-14.8); WHITE BLOOD COUNT 4.7 K/UL (4.8-10.8)
[2018-09-19 07:31] LABS: ALANINE AMINOTRANSFERASE 186 U/L (12-78); ALBUMIN 2.5 G/DL (3.4-5.0); ALBUMIN/GLOBULIN RATIO 0.6 (1.0-2.7); ALKALINE PHOSPHATASE 173 U/L (46-116); AMMONIA 60 umol/L (11-32); ANION GAP 7 mmol/L (5-15); ASPARTATE AMINO TRANSFERASE 415 U/L (15-37); BILIRUBIN,TOTAL 7.2 MG/DL (0.2-1.0); BLOOD UREA NITROGEN 3 mg/dL (7-18); CALCIUM 7.3 MG/DL (8.5-10.1); CARBON DIOXIDE 29 MMOL/L (21-32); CHLORIDE 98 MMOL/L (98-107); CREATININE 0.8 MG/DL (0.55-1.30); PHOSPHORUS 1.8 MG/DL (2.5-4.9); POTASSIUM 3.4 MMOL/L (3.5-5.1); SODIUM 134 MMOL/L (136-145)
[2018-09-19 08:00] VITALS: BP 118/75
[2018-09-19] MEDS: Spironolactone 25mg tab ORAL SCH ×2 (08:47→21:23)
[2018-09-19] MEDS: Thiamine 100mg tab ORAL SCH (08:47)
[2018-09-19] MEDS: Lactulose 20gm/30ml UDC ORAL SCH ×3 (08:47→18:06)
[2018-09-19] MEDS: Phytonadione 10 mg/mL 1ml amp SUBQ SCH (09:12)
--- NOTE | 2018-09-19 10:21 | GI Progress Note ---
Assessment/Plan Problems: (1) Alcohol withdrawal ICD Codes: F10.239 - Alcohol dependence with withdrawal, unspecified SNOMED: 453792907 (2) Liver failure ICD Codes: K72.90 - Hepatic failure, unspecified without coma SNOMED: 20608550 Qualifiers: Qualified Codes: K72.00 - Acute and subacute hepatic failure without coma (3) Pancytopenia ICD Codes: D61.818 - Other pancytopenia SNOMED: 132931841 (4) Coagulopathy ICD Codes: D68.9 - Coagulation defect, unspecified SNOMED: 45690298 (5) Cirrhosis ICD Codes: K74.60 - Unspecified cirrhosis of liver SNOMED: 24917477 (6) Mild epistaxis ICD Codes: R04.0 - Epistaxis SNOMED: 135617585 Status: stable, unchanged Status Narrative Discussed with Dr. Kirby Assessment/Plan Abdominal ultrasound reviewed noted with cholelithiasis and gallbladder sludge, no biliary ductal dilation, cirrhosis. anemia work up reviewed OB stool collected, pending final read Stable H&H Low-sodium diet monitor H&H, prn transfusions bowel regime ppi vit K Banana bag Ativan as needed Lactulose plus xifaxan Patient instructed to avoid alcohol fu labs, hepatitis panel Patient could benefit from outpatient endoscopy to rule out esophageal varices The patient was seen and examined at bedside and all new and available data was reviewed in the patients chart. I agree with the above findings, impression and plan. (Patient seen earlier today. Signature stamp does not reflect patient encounter time.). - Nestor Kirby MD Subjective Subjective Still has episodes of epistaxis denies any abdominal pain, denies any nausea or vomiting Objective Last 24 Hour Vital Signs Date Time Temp Pulse Resp B/P (MAP) Pulse Ox O2 Delivery O2 Flow Rate FiO2 09/19/18 09:06 Room Air 09/19/18 08:00 98.1 116 20 118/75 (89) 97 09/19/18 04:00 99.5 108 18 105/62 (76) 97 09/19/18 04:00 111 09/19/18 00:00 108 09/19/18 00:00 99.2 111 20 113/72 (86) 96 09/18/18 21:00 Room Air 09/18/18 20:00 99.1 117 20 127/73 (91) 97 09/18/18 20:00 104 09/18/18 16:00 99.2 105 18 125/79 (94) 96 09/18/18 16:00 123 09/18/18 12:00 111 09/18/18 12:00 99.8 112 21 144/89 (107) 97 Intake and Output 09/18/18 09/19/18 19:00 07:00 Intake Total 1500 ml Output Total 800 ml Balance 1500 ml -800 ml Intake Oral 1500 ml Output Urine Total 800 ml # Bowel Movements 1 Laboratory Tests Test 09/18/18 18:45 09/18/18 23:00 09/19/18 06:00 PTT Mixing Study Pending APTT Patient/Control Mix Pending Mix PTT Incubation Time Pending Mix PTT Normal/Saline 1:1 Immediate Pending Thrombin Time Normal Plasma Pending Stool Occult Blood Pending White Blood Count 4.7 K/UL (4.8-10.8) L Red Blood Count 3.31 M/UL (4.70-6.10) L Hemoglobin 11.2 G/DL (14.2-18.0) L Hematocrit 33.1 % (42.0-52.0) L Mean Corpuscular Volume 100 FL (80-99) H Mean Corpuscular Hemoglobin 33.9 PG (27.0-31.0) H Mean Corpuscular Hemoglobin Concent 33.9 G/DL (32.0-36.0) Red Cell Distribution Width 17.5 % (11.6-14.8) H Platelet Count 33 K/UL (150-450) L Mean Platelet Volume 12.9 FL (6.5-10.1) H Neutrophils (%) (Auto) % (45.0-75.0) Lymphocytes (%) (Auto) % (20.0-45.0) Monocytes (%) (Auto) % (1.0-10.0) Eosinophils (%) (Auto) % (0.0-3.0) Basophils (%) (Auto) % (0.0-2.0) Differential Total Cells Counted 100 Neutrophils % (Manual) 59 % (45-75) Lymphocytes % (Manual) 29 % (20-45) Monocytes % (Manual) 9 % (1-10) Eosinophils % (Manual) 3 % (0-3) Basophils % (Manual) 0 % (0-2) Band Neutrophils 0 % (0-8) Platelet Estimate Decreased L Platelet Morphology Normal Macrocytosis 1+ Target Cells 3+ Sodium Level 134 MMOL/L (136-145) L Potassium Level 3.4 MMOL/L (3.5-5.1) L Chloride Level 98 MMOL/L (98-107) Carbon Dioxide Level 29 MMOL/L (21-32) Anion Gap 7 mmol/L (5-15) Blood Urea Nitrogen 3 mg/dL (7-18) L Creatinine 0.8 MG/DL (0.55-1.30) Estimat Glomerular Filtration Rate > 60 mL/min (>60) Glucose Level 110 MG/DL (74-106) H Uric Acid 3.9 MG/DL (2.6-7.2) Calcium Level 7.3 MG/DL (8.5-10.1) L Phosphorus Level 1.8 MG/DL (2.5-4.9) L Magnesium Level 2.0 MG/DL (1.8-2.4) Total Bilirubin 7.2 MG/DL (0.2-1.0) H Direct Bilirubin 5.0 MG/DL (0.0-0.3) H Aspartate Amino Transf (AST/SGOT) 415 U/L (15-37) H Alanine Aminotransferase (ALT/SGPT) 186 U/L (12-78) H Alkaline Phosphatase 173 U/L (46-116) H Ammonia 60 umol/L (11-32) H Total Protein 6.4 G/DL (6.4-8.2) Albumin 2.5 G/DL (3.4-5.0) L Globulin 3.9 g/dL Albumin/Globulin Ratio 0.6 (1.0-2.7) L Hepatitis A IgM Antibody Pending Hepatitis B Surface Antigen Pending Hepatitis B Core IgM Antibody Pending Hepatitis C Antibody Pending Height (Feet): 5 Height (Inches): 5.00 Weight (Pounds): 140 General Appearance: WD/WN, no apparent distress, alert Cardiovascular: normal rate Respiratory/Chest: normal breath sounds, no respiratory distress Abdominal Exam: normal bowel sounds, non tender, soft Extremities: normal range of motion, non-tender Jeet Russ NP Sep 19, 2018 10:21
[2018-09-19] MEDS ORDERED: Potassium Phosphate 30 MM in NS 275 ML IV SCH (11:00)
[2018-09-19 12:00] VITALS: BP 103/68
--- NOTE | 2018-09-19 15:53 | Nephrology Progress Note ---
Assessment/Plan Problem List: (1) Electrolyte abnormality (2) Cirrhosis (3) Pancytopenia (4) Hyponatremia (5) Coagulopathy Assessment Coagulopathy due to liver pathology: INR 2.2 Thrombocytopenia due to cirrhosis mild anemia mild epistaxis mild HypoNatremia due to cirrhosis and low Albumin High LFTs abd Bili Plan lactulose protonix Aldactone per GI and Hematology Vit K 2gr Na diet Subjective ROS Limited/Unobtainable: No Constitutional: Reports: malaise, weakness Objective Objective Last 24 Hour Vital Signs Date Time Temp Pulse Resp B/P (MAP) Pulse Ox O2 Delivery O2 Flow Rate FiO2 09/19/18 12:00 99.0 103 20 103/68 (80) 97 09/19/18 12:00 104 09/19/18 09:06 Room Air 09/19/18 08:00 104 09/19/18 08:00 98.1 116 20 118/75 (89) 97 09/19/18 04:00 99.5 108 18 105/62 (76) 97 09/19/18 04:00 111 09/19/18 00:00 108 09/19/18 00:00 99.2 111 20 113/72 (86) 96 09/18/18 21:00 Room Air 09/18/18 20:00 99.1 117 20 127/73 (91) 97 09/18/18 20:00 104 09/18/18 16:00 99.2 105 18 125/79 (94) 96 09/18/18 16:00 123 Intake and Output 09/18/18 09/19/18 19:00 07:00 Intake Total 1500 ml Output Total 800 ml Balance 1500 ml -800 ml Intake Oral 1500 ml Output Urine Total 800 ml # Bowel Movements 1 Laboratory Tests 09/18/18 18:45: PTT Mixing Study [Pending], APTT Patient/Control Mix [Pending], Mix PTT Incubation Time [Pending], Mix PTT Normal/Saline 1:1 Immediate [Pending], Thrombin Time Normal Plasma [Pending] 09/18/18 23:00: Stool Occult Blood Negative 09/19/18 06:00: White Blood Count 4.7L, Red Blood Count 3.31L, Hemoglobin 11.2L, Hematocrit 33.1L, Mean Corpuscular Volume 100H, Mean Corpuscular Hemoglobin 33.9H, Mean Corpuscular Hemoglobin Concent 33.9, Red Cell Distribution Width 17.5H, Platelet Count 33L, Mean Platelet Volume 12.9H, Neutrophils (%) (Auto) , Lymphocytes (%) (Auto) , Monocytes (%) (Auto) , Eosinophils (%) (Auto) , Basophils (%) (Auto) , Differential Total Cells Counted 100, Neutrophils % ( Manual) 59, Lymphocytes % (Manual) 29, Monocytes % (Manual) 9, Eosinophils % ( Manual) 3, Basophils % (Manual) 0, Band Neutrophils 0, Platelet Estimate DecreasedL, Platelet Morphology Normal, Macrocytosis 1+, Target Cells 3+, Sodium Level 134L, Potassium Level 3.4L, Chloride Level 98, Carbon Dioxide Level 29, Anion Gap 7, Blood Urea Nitrogen 3L, Creatinine 0.8, Estimat Glomerular Filtration Rate > 60, Glucose Level 110H, Uric Acid 3.9, Calcium Level 7.3L, Phosphorus Level 1.8L, Magnesium Level 2.0, Total Bilirubin 7.2H, Direct Bilirubin 5.0H, Aspartate Amino Transf (AST/SGOT) 415H, Alanine Aminotransferase (ALT/SGPT) 186H, Alkaline Phosphatase 173H, Ammonia 60H, Total Protein 6.4, Albumin 2.5L, Globulin 3.9, Albumin/Globulin Ratio 0.6L, Hepatitis A IgM Antibody [Pending], Hepatitis B Surface Antigen [Pending], Hepatitis B Core IgM Antibody [Pending], Hepatitis C Antibody [Pending] Height (Feet): 5 Height (Inches): 5.00 Weight (Pounds): 140 Cardiovascular: tachycardia Respiratory/Chest: decreased breath sounds Abdomen: distended Serg Baumann MD Sep 19, 2018 15:53
[2018-09-19 16:00] VITALS: BP 116/70
[2018-09-19] MEDS ORDERED: Propranolol 10mg tab ORAL SCH (16:00)
--- NOTE | 2018-09-19 17:22 | General Progress Note ---
Assessment/Plan Assessment: Assessment and plan: # Pancytopenia -- multiple etiologies could be related to underlying liver disease, does have a history of cirrhosis due to etoh use and the abd us does show cirrhosis noted --> peripheral smear has been ordered and does not show significant abnormalities --> Medications have been reviewed --> Continue to monitor for improvement, trend cbc --> Hep panel and HIV have been ordered, results pending --> US abd ordered to r/o cirrhosis does in fact show cirrhosis --> consider other causes, infections that could contribute --> reverse isolation if ANC is <2000 --> Give neupogen if ANC <1000 --> Transfuse if hgb <7, with 1 unit prbc # Coagulation defect, multifactorial usually related to poor PO intake versus medications, v most likely cirrhosis --> administer Vitamin K 10mg sq x 3 days --> hold off on ffp unless active procedure/bleeding, first begin with vit K 10 --> mixing study as needed # Nasal bleed, epistaxis --> on exam 09/18/18 had improved drastically --> if recurs, consider platelelts if <50k --> also consider vit K x 3 days to bring down inr # Liver failure with cirrhosis --> if bleeding and inr goes up, consider ffp and vit K # ETOH withdrawal --> protonix, ativan, thiamine, folic acid The timing of this note does not necessarily reflect the time of the patient was seen. Greatly appreciate consultation! Subjective Constitutional: Denies: no symptoms, chills, diaphoresis, fever, malaise, weakness, other Cardiovascular: Denies: no symptoms, chest pain, edema, irregular heart rate, lightheadedness, palpitations, syncope, other Respiratory: Denies: no symptoms, cough, orthopnea, shortness of breath, SOB with excertion, SOB at rest, sputum, stridor, wheezing, other Gastrointestinal/Abdominal: Denies: no symptoms, abdomen distended, abdominal pain, black stools, tarry stools, blood in stool, constipated, diarrhea, difficulty swallowing, nausea, poor appetite, poor fluid intake, rectal bleeding , vomiting, other Genitourinary: Denies: no symptoms, burning, discharge, frequency, flank pain, hematuria, incontinence, pain, urgency, other Neurologic/Psychiatric: Denies: no symptoms, anxiety, depressed, emotional problems, headache, numbness, paresthesia, pre-existing deficit, seizure, tingling, tremors, weakness, other Endocrine: Denies: no symptoms, excessive sweating, flushing, intolerance to cold, intolerance to heat, increased hunger, increased thirst, increased urine, unexplained weight gain, unexplained weight loss, other Allergies: Coded Allergies: No Known Allergies (Unverified , 09/17/18) Subjective 09/19: less nasal bleeding though continues to have some overnight Objective Last 24 Hour Vital Signs Date Time Temp Pulse Resp B/P (MAP) Pulse Ox O2 Delivery O2 Flow Rate FiO2 09/19/18 16:52 105 123/78 09/19/18 16:00 97.6 99 20 116/70 (85) 97 09/19/18 16:00 101 09/19/18 12:00 99.0 103 20 103/68 (80) 97 09/19/18 12:00 104 09/19/18 09:06 Room Air 09/19/18 08:00 104 09/19/18 08:00 98.1 116 20 118/75 (89) 97 09/19/18 04:00 99.5 108 18 105/62 (76) 97 09/19/18 04:00 111 09/19/18 00:00 108 09/19/18 00:00 99.2 111 20 113/72 (86) 96 09/18/18 21:00 Room Air 09/18/18 20:00 99.1 117 20 127/73 (91) 97 09/18/18 20:00 104 Intake and Output 09/18/18 09/19/18 19:00 07:00 Intake Total 1500 ml Output Total 800 ml Balance 1500 ml -800 ml Intake Oral 1500 ml Output Urine Total 800 ml # Bowel Movements 1 Laboratory Tests 09/18/18 18:45: PTT Mixing Study [Pending], APTT Patient/Control Mix [Pending], Mix PTT Incubation Time [Pending], Mix PTT Normal/Saline 1:1 Immediate [Pending], Thrombin Time Normal Plasma [Pending] 09/18/18 23:00: Stool Occult Blood Negative 09/19/18 06:00: White Blood Count 4.7L, Red Blood Count 3.31L, Hemoglobin 11.2L, Hematocrit 33.1L, Mean Corpuscular Volume 100H, Mean Corpuscular Hemoglobin 33.9H, Mean Corpuscular Hemoglobin Concent 33.9, Red Cell Distribution Width 17.5H, Platelet Count 33L, Mean Platelet Volume 12.9H, Neutrophils (%) (Auto) , Lymphocytes (%) (Auto) , Monocytes (%) (Auto) , Eosinophils (%) (Auto) , Basophils (%) (Auto) , Differential Total Cells Counted 100, Neutrophils % ( Manual) 59, Lymphocytes % (Manual) 29, Monocytes % (Manual) 9, Eosinophils % ( Manual) 3, Basophils % (Manual) 0, Band Neutrophils 0, Platelet Estimate DecreasedL, Platelet Morphology Normal, Macrocytosis 1+, Target Cells 3+, Sodium Level 134L, Potassium Level 3.4L, Chloride Level 98, Carbon Dioxide Level 29, Anion Gap 7, Blood Urea Nitrogen 3L, Creatinine 0.8, Estimat Glomerular Filtration Rate > 60, Glucose Level 110H, Uric Acid 3.9, Calcium Level 7.3L, Phosphorus Level 1.8L, Magnesium Level 2.0, Total Bilirubin 7.2H, Direct Bilirubin 5.0H, Aspartate Amino Transf (AST/SGOT) 415H, Alanine Aminotransferase (ALT/SGPT) 186H, Alkaline Phosphatase 173H, Ammonia 60H, Total Protein 6.4, Albumin 2.5L, Globulin 3.9, Albumin/Globulin Ratio 0.6L, Hepatitis A IgM Antibody [Pending], Hepatitis B Surface Antigen [Pending], Hepatitis B Core IgM Antibody [Pending], Hepatitis C Antibody [Pending] Height (Feet): 5 Height (Inches): 5.00 Weight (Pounds): 140 Objective Physical Exam: Vitals: reviewed General Appearance: NAD ++ jaundice HEENT: normocephalic, atraumatic Neck: non-tender, normal alignment Respiratory/Chest: normal breath sounds bilaterally Cardiovascular/Chest: normal peripheral pulses, normal rate Abdomen: normal bowel sounds, soft, nontender Extremities: normal range of motion Garrison Storm MD Sep 19, 2018 17:21
[2018-09-19] MEDS: Propranolol 10mg tab ORAL SCH (18:00)
[2018-09-19 20:00] VITALS: BP 103/63
--- NOTE | 2018-09-19 21:53 | General Progress Note ---
Assessment/Plan Problem List: (1) Rhabdomyolysis ICD Codes: M62.82 - Rhabdomyolysis SNOMED: 993891149 (2) Cirrhosis ICD Codes: K74.60 - Unspecified cirrhosis of liver SNOMED: 94722517 (3) Pancytopenia ICD Codes: D61.818 - Other pancytopenia SNOMED: 826369538 (4) Liver failure ICD Codes: K72.90 - Hepatic failure, unspecified without coma SNOMED: 55622613 Qualifiers: Qualified Codes: K72.00 - Acute and subacute hepatic failure without coma (5) Alcohol dependence ICD Codes: F10.20 - Alcohol dependence, uncomplicated SNOMED: 79900317 (6) Alcohol withdrawal ICD Codes: F10.239 - Alcohol dependence with withdrawal, unspecified SNOMED: 296022613 (7) Hyponatremia ICD Codes: E87.1 - Hypo-osmolality and hyponatremia SNOMED: 90028725 (8) Electrolyte abnormality ICD Codes: E87.8 - Other disorders of electrolyte and fluid balance, not elsewhere classified SNOMED: 555504360 Status: progressing Assessment: afebrile no n/v/d r/o dt etoh reviewed chart nad labs Subjective ROS Limited/Unobtainable: Yes Allergies: Coded Allergies: No Known Allergies (Unverified , 09/17/18) Objective Last 24 Hour Vital Signs Date Time Temp Pulse Resp B/P (MAP) Pulse Ox O2 Delivery O2 Flow Rate FiO2 09/19/18 18:00 97 106/62 09/19/18 16:52 105 123/78 09/19/18 16:00 97.6 99 20 116/70 (85) 97 09/19/18 16:00 101 09/19/18 12:00 99.0 103 20 103/68 (80) 97 09/19/18 12:00 104 09/19/18 09:06 Room Air 09/19/18 08:00 104 09/19/18 08:00 98.1 116 20 118/75 (89) 97 09/19/18 04:00 99.5 108 18 105/62 (76) 97 09/19/18 04:00 111 09/19/18 00:00 108 09/19/18 00:00 99.2 111 20 113/72 (86) 96 Intake and Output 09/18/18 09/19/18 18:59 06:59 Intake Total 1500 ml Output Total 800 ml Balance 1500 ml -800 ml Intake Oral 1500 ml Output Urine Total 800 ml # Bowel Movements 1 Laboratory Tests 09/18/18 23:00: Stool Occult Blood Negative 09/19/18 06:00: White Blood Count 4.7L, Red Blood Count 3.31L, Hemoglobin 11.2L, Hematocrit 33.1L, Mean Corpuscular Volume 100H, Mean Corpuscular Hemoglobin 33.9H, Mean Corpuscular Hemoglobin Concent 33.9, Red Cell Distribution Width 17.5H, Platelet Count 33L, Mean Platelet Volume 12.9H, Neutrophils (%) (Auto) , Lymphocytes (%) (Auto) , Monocytes (%) (Auto) , Eosinophils (%) (Auto) , Basophils (%) (Auto) , Differential Total Cells Counted 100, Neutrophils % ( Manual) 59, Lymphocytes % (Manual) 29, Monocytes % (Manual) 9, Eosinophils % ( Manual) 3, Basophils % (Manual) 0, Band Neutrophils 0, Platelet Estimate DecreasedL, Platelet Morphology Normal, Macrocytosis 1+, Target Cells 3+, Sodium Level 134L, Potassium Level 3.4L, Chloride Level 98, Carbon Dioxide Level 29, Anion Gap 7, Blood Urea Nitrogen 3L, Creatinine 0.8, Estimat Glomerular Filtration Rate > 60, Glucose Level 110H, Uric Acid 3.9, Calcium Level 7.3L, Phosphorus Level 1.8L, Magnesium Level 2.0, Total Bilirubin 7.2H, Direct Bilirubin 5.0H, Aspartate Amino Transf (AST/SGOT) 415H, Alanine Aminotransferase (ALT/SGPT) 186H, Alkaline Phosphatase 173H, Ammonia 60H, Total Protein 6.4, Albumin 2.5L, Globulin 3.9, Albumin/Globulin Ratio 0.6L, Hepatitis A IgM Antibody [Pending], Hepatitis B Surface Antigen [Pending], Hepatitis B Core IgM Antibody [Pending], Hepatitis C Antibody [Pending] Height (Feet): 5 Height (Inches): 5.00 Weight (Pounds): 140 Neck: supple Cardiovascular: normal rate Respiratory/Chest: lungs clear Sharon Fink MD Sep 19, 2018 21:53
[2018-09-20] VITALS: BP 117/68
[2018-09-20] MEDS: Propranolol 10mg tab ORAL SCH ×4 (01:01→17:21)
[2018-09-20 04:00] VITALS: BP 98/59
[2018-09-20] MEDS: LORazepam Inj 2mg/ml 1ml IV PRN ×6 (04:04→19:33)
[2018-09-20] MEDS: chlordiazePOXIDE 25mg Cap ORAL SCH ×3 (05:32→21:09)
[2018-09-20 06:31] LABS: HEMATOCRIT 30.2 % (42.0-52.0); HEMOGLOBIN 10.4 G/DL (14.2-18.0); MEAN CORPUSCULAR VOLUME 102 FL (80-99); PLATELET COUNT 34 K/UL (150-450); RED BLOOD COUNT 2.94 M/UL (4.70-6.10); RED CELL DISTRIBUTION WIDTH 17.8 % (11.6-14.8); WHITE BLOOD COUNT 9.5 K/UL (4.8-10.8)
[2018-09-20 06:45] LABS: INR 1.7 (0.9-1.1)
[2018-09-20 06:57] LABS: PHOSPHORUS 2.4 MG/DL (2.5-4.9)
[2018-09-20 07:03] LABS: ALANINE AMINOTRANSFERASE 159 U/L (12-78); ALBUMIN 2.2 G/DL (3.4-5.0); ALBUMIN/GLOBULIN RATIO 0.6 (1.0-2.7); ALKALINE PHOSPHATASE 190 U/L (46-116); ANION GAP 7 mmol/L (5-15); ASPARTATE AMINO TRANSFERASE 304 U/L (15-37); BILIRUBIN,TOTAL 6.3 MG/DL (0.2-1.0); BLOOD UREA NITROGEN 4 mg/dL (7-18); CALCIUM 7.8 MG/DL (8.5-10.1); CARBON DIOXIDE 26 MMOL/L (21-32); CHLORIDE 98 MMOL/L (98-107); CREATININE 0.9 MG/DL (0.55-1.30); POTASSIUM 3.9 MMOL/L (3.5-5.1); SODIUM 131 MMOL/L (136-145)
[2018-09-20 07:05] LABS: BILIRUBIN,DIRECT 4.6 MG/DL (0.0-0.3)
[2018-09-20] MEDS ORDERED: Phospha 250 Neutral tab ORAL SCH (08:00)
[2018-09-20 08:18] VITALS: BP 97/66
[2018-09-20] MEDS: Lactulose 20gm/30ml UDC ORAL SCH ×3 (08:31→17:20)
[2018-09-20] MEDS: Thiamine 100mg tab ORAL SCH (08:32)
[2018-09-20] MEDS: Spironolactone 25mg tab ORAL SCH ×2 (08:32→21:08)
[2018-09-20] MEDS: Phytonadione 10 mg/mL 1ml amp SUBQ SCH (09:35)
[2018-09-20] MEDS ORDERED: Haloperidol 5mg/ml Inj IM PRN (10:15)
[2018-09-20 12:07] VITALS: BP 99/60
--- NOTE | 2018-09-20 12:45 | General Progress Note ---
Assessment/Plan Assessment: Assessment and plan: # Pancytopenia -- multiple etiologies could be related to underlying liver disease, does have a history of cirrhosis due to etoh use and the abd us does show cirrhosis noted, does have heavy etoh use in the past/current, myelosuppression --> peripheral smear has been ordered and does not show significant abnormalities --> Medications have been reviewed --> Continue to monitor for improvement, trend cbc --> Hep panel and HIV are both negative --> US abd ordered to r/o cirrhosis does in fact show cirrhosis --> consider other causes, infections that could contribute --> reverse isolation if ANC is <2000 --> Give neupogen if ANC <1000 --> Transfuse if hgb <7, with 1 unit prbc # Coagulation defect, multifactorial usually related to poor PO intake versus medications, v most likely cirrhosis --> administer Vitamin K 10mg sq x 3 days --> hold off on ffp unless active procedure/bleeding, first begin with vit K 10 --> mixing study as needed # Nasal bleed, epistaxis --> on exam 09/18/18 had improved drastically --> if recurs, consider platelelts if <50k --> also given vit K x 3 days to bring down inr # Liver failure with cirrhosis --> if bleeding and inr goes up, consider ffp and vit K # ETOH withdrawal --> protonix, ativan, thiamine, folic acid The timing of this note does not necessarily reflect the time of the patient was seen. Greatly appreciate consultation! Subjective Constitutional: Denies: no symptoms, chills, diaphoresis, fever, malaise, weakness, other HEENT: Denies: no symptoms, eye pain, blurred vision, tearing, double vision, ear pain, ear discharge, nose pain, nose congestion, throat pain, throat swelling, mouth pain, mouth swelling, other Cardiovascular: Denies: no symptoms, chest pain, edema, irregular heart rate, lightheadedness, palpitations, syncope, other Gastrointestinal/Abdominal: Denies: no symptoms, abdomen distended, abdominal pain, black stools, tarry stools, blood in stool, constipated, diarrhea, difficulty swallowing, nausea, poor appetite, poor fluid intake, rectal bleeding , vomiting, other Genitourinary: Denies: no symptoms, burning, discharge, frequency, flank pain, hematuria, incontinence, pain, urgency, other Neurologic/Psychiatric: Denies: no symptoms, anxiety, depressed, emotional problems, headache, numbness, paresthesia, pre-existing deficit, seizure, tingling, tremors, weakness, other Endocrine: Denies: no symptoms, excessive sweating, flushing, intolerance to cold, intolerance to heat, increased hunger, increased thirst, increased urine, unexplained weight gain, unexplained weight loss, other Hematologic/Lymphatic: Denies: no symptoms, anemia, easy bleeding, easy bruising, other Allergies: Coded Allergies: No Known Allergies (Unverified , 09/17/18) Subjective 09/19: less nasal bleeding though continues to have some overnight 09/20: no bleeding, plt remains low, less agitation but remains confused Objective Last 24 Hour Vital Signs Date Time Temp Pulse Resp B/P (MAP) Pulse Ox O2 Delivery O2 Flow Rate FiO2 09/20/18 12:07 98.4 95 20 99/60 (73) 96 09/20/18 12:00 82 09/20/18 11:36 99 97/66 09/20/18 09:07 Room Air 09/20/18 08:18 100.1 99 20 97/66 (76) 95 09/20/18 08:00 100 09/20/18 05:39 96 110/62 09/20/18 04:00 96 09/20/18 04:00 98.8 96 18 98/59 (72) 96 09/20/18 01:01 105 117/74 09/20/18 00:00 99 09/20/18 00:00 99.1 99 18 117/68 (84) 96 09/19/18 21:00 Room Air 09/19/18 20:00 99.1 93 20 103/63 (76) 97 09/19/18 20:00 93 09/19/18 18:00 97 106/62 09/19/18 16:52 105 123/78 09/19/18 16:00 97.6 99 20 116/70 (85) 97 09/19/18 16:00 101 Intake and Output 09/19/18 09/20/18 19:00 07:00 Intake Total 780 ml Output Total 1200 ml 600 ml Balance -420 ml -600 ml Intake Oral 780 ml Output Urine Total 1200 ml 600 ml # Bowel Movements 1 Laboratory Tests 09/20/18 05:20: White Blood Count 9.5#, Red Blood Count 2.94L, Hemoglobin 10.4L, Hematocrit 30.2L, Mean Corpuscular Volume 102H, Mean Corpuscular Hemoglobin 35.2H, Mean Corpuscular Hemoglobin Concent 34.3, Red Cell Distribution Width 17.8H, Platelet Count 34L, Mean Platelet Volume 10.7H, Neutrophils (%) (Auto) , Lymphocytes (%) (Auto) , Monocytes (%) (Auto) , Eosinophils (%) (Auto) , Basophils (%) (Auto) , Differential Total Cells Counted 100, Neutrophils % ( Manual) 56, Lymphocytes % (Manual) 35, Monocytes % (Manual) 5, Eosinophils % ( Manual) 3, Basophils % (Manual) 1, Band Neutrophils 0, Nucleated Red Blood Cells 1, Platelet Estimate DecreasedL, Platelet Morphology Normal, Hypochromasia 1+, Anisocytosis 1+, Macrocytosis 1+, Prothrombin Time 17.8H, Prothromb Time International Ratio 1.7H, Activated Partial Thromboplast Time 32 , Sodium Level 131L, Potassium Level 3.9, Chloride Level 98, Carbon Dioxide Level 26, Anion Gap 7, Blood Urea Nitrogen 4L, Creatinine 0.9, Estimat Glomerular Filtration Rate > 60, Glucose Level 100, Uric Acid 3.8, Calcium Level 7.8L, Phosphorus Level 2.4L, Magnesium Level 1.5L, Total Bilirubin 6.3H, Direct Bilirubin 4.6H, Aspartate Amino Transf (AST/SGOT) 304H, Alanine Aminotransferase (ALT/SGPT) 159H, Alkaline Phosphatase 190H, Total Protein 6.0L , Albumin 2.2L, Globulin 3.8, Albumin/Globulin Ratio 0.6L Height (Feet): 5 Height (Inches): 5.00 Weight (Pounds): 140 Objective Physical Exam: Vitals: reviewed General Appearance: NAD ++ jaundice HEENT: normocephalic, atraumatic Neck: non-tender, normal alignment Respiratory/Chest: normal breath sounds bilaterally Cardiovascular/Chest: normal peripheral pulses, normal rate Abdomen: normal bowel sounds, soft, nontender Extremities: normal range of motion Garrison Storm MD Sep 20, 2018 12:45
--- NOTE | 2018-09-20 13:43 | Nephrology Progress Note ---
Assessment/Plan Problem List: (1) Electrolyte abnormality (2) Cirrhosis (3) Pancytopenia (4) Hyponatremia (5) Coagulopathy Assessment Coagulopathy due to liver pathology: INR 2.2 Thrombocytopenia due to cirrhosis mild anemia mild epistaxis mild HypoNatremia due to cirrhosis and low Albumin High LFTs abd Bili Plan lactulose protonix Aldactone per GI and Hematology Vit K 2gr Na diet Subjective ROS Limited/Unobtainable: No Constitutional: Reports: malaise, weakness Objective Objective Last 24 Hour Vital Signs Date Time Temp Pulse Resp B/P (MAP) Pulse Ox O2 Delivery O2 Flow Rate FiO2 09/20/18 12:07 98.4 95 20 99/60 (73) 96 09/20/18 12:00 82 09/20/18 11:36 99 97/66 09/20/18 09:07 Room Air 09/20/18 08:18 100.1 99 20 97/66 (76) 95 09/20/18 08:00 100 09/20/18 05:39 96 110/62 09/20/18 04:00 96 09/20/18 04:00 98.8 96 18 98/59 (72) 96 09/20/18 01:01 105 117/74 09/20/18 00:00 99 09/20/18 00:00 99.1 99 18 117/68 (84) 96 09/19/18 21:00 Room Air 09/19/18 20:00 99.1 93 20 103/63 (76) 97 09/19/18 20:00 93 09/19/18 18:00 97 106/62 09/19/18 16:52 105 123/78 09/19/18 16:00 97.6 99 20 116/70 (85) 97 09/19/18 16:00 101 Intake and Output 09/19/18 09/20/18 19:00 07:00 Intake Total 780 ml Output Total 1200 ml 600 ml Balance -420 ml -600 ml Intake Oral 780 ml Output Urine Total 1200 ml 600 ml # Bowel Movements 1 Laboratory Tests 09/20/18 05:20: White Blood Count 9.5#, Red Blood Count 2.94L, Hemoglobin 10.4L, Hematocrit 30.2L, Mean Corpuscular Volume 102H, Mean Corpuscular Hemoglobin 35.2H, Mean Corpuscular Hemoglobin Concent 34.3, Red Cell Distribution Width 17.8H, Platelet Count 34L, Mean Platelet Volume 10.7H, Neutrophils (%) (Auto) , Lymphocytes (%) (Auto) , Monocytes (%) (Auto) , Eosinophils (%) (Auto) , Basophils (%) (Auto) , Differential Total Cells Counted 100, Neutrophils % ( Manual) 56, Lymphocytes % (Manual) 35, Monocytes % (Manual) 5, Eosinophils % ( Manual) 3, Basophils % (Manual) 1, Band Neutrophils 0, Nucleated Red Blood Cells 1, Platelet Estimate DecreasedL, Platelet Morphology Normal, Hypochromasia 1+, Anisocytosis 1+, Macrocytosis 1+, Prothrombin Time 17.8H, Prothromb Time International Ratio 1.7H, Activated Partial Thromboplast Time 32 , Sodium Level 131L, Potassium Level 3.9, Chloride Level 98, Carbon Dioxide Level 26, Anion Gap 7, Blood Urea Nitrogen 4L, Creatinine 0.9, Estimat Glomerular Filtration Rate > 60, Glucose Level 100, Uric Acid 3.8, Calcium Level 7.8L, Phosphorus Level 2.4L, Magnesium Level 1.5L, Total Bilirubin 6.3H, Direct Bilirubin 4.6H, Aspartate Amino Transf (AST/SGOT) 304H, Alanine Aminotransferase (ALT/SGPT) 159H, Alkaline Phosphatase 190H, Total Protein 6.0L , Albumin 2.2L, Globulin 3.8, Albumin/Globulin Ratio 0.6L Height (Feet): 5 Height (Inches): 5.00 Weight (Pounds): 140 General Appearance: no apparent distress, lethargic Cardiovascular: tachycardia Respiratory/Chest: decreased breath sounds Abdomen: distended Serg Baumann MD Sep 20, 2018 13:43
--- NOTE | 2018-09-20 14:37 | General Progress Note ---
Assessment/Plan Plan: Assessment/Plan Problems: (1) Alcohol withdrawal ICD Codes: F10.239 - Alcohol dependence with withdrawal, unspecified SNOMED: 103374348 (2) Liver failure ICD Codes: K72.90 - Hepatic failure, unspecified without coma SNOMED: 40471877 Qualifiers: Qualified Codes: K72.00 - Acute and subacute hepatic failure without coma (3) Pancytopenia ICD Codes: D61.818 - Other pancytopenia SNOMED: 868393090 (4) Coagulopathy ICD Codes: D68.9 - Coagulation defect, unspecified SNOMED: 48204239 (5) Cirrhosis ICD Codes: K74.60 - Unspecified cirrhosis of liver SNOMED: 32975882 (6) Mild epistaxis ICD Codes: R04.0 - Epistaxis SNOMED: 925139223 Status: stable, unchanged (7) EtOH hepatitis Assessment/Plan Abdominal ultrasound reviewed noted with cholelithiasis and gallbladder sludge, no biliary ductal dilation, cirrhosis. anemia work up reviewed OB stool collected, pending final read Stable H&H Low-sodium diet monitor H&H, prn transfusions bowel regime ppi vit K Banana bag Ativan as needed Lactulose plus xifaxan Patient instructed to avoid alcohol fu labs, hepatitis panel Patient could benefit from outpatient endoscopy to rule out esophageal varices add trental Subjective Allergies: Coded Allergies: No Known Allergies (Unverified , 09/17/18) Subjective above noted family at bedside confused poor po intake d/w RN Objective Last 24 Hour Vital Signs Date Time Temp Pulse Resp B/P (MAP) Pulse Ox O2 Delivery O2 Flow Rate FiO2 09/20/18 12:07 98.4 95 20 99/60 (73) 96 09/20/18 12:00 82 09/20/18 11:36 99 97/66 09/20/18 09:07 Room Air 09/20/18 08:18 100.1 99 20 97/66 (76) 95 09/20/18 08:00 100 09/20/18 05:39 96 110/62 09/20/18 04:00 96 09/20/18 04:00 98.8 96 18 98/59 (72) 96 09/20/18 01:01 105 117/74 09/20/18 00:00 99 09/20/18 00:00 99.1 99 18 117/68 (84) 96 09/19/18 21:00 Room Air 09/19/18 20:00 99.1 93 20 103/63 (76) 97 09/19/18 20:00 93 09/19/18 18:00 97 106/62 09/19/18 16:52 105 123/78 09/19/18 16:00 97.6 99 20 116/70 (85) 97 09/19/18 16:00 101 Intake and Output 09/19/18 09/20/18 19:00 07:00 Intake Total 780 ml Output Total 1200 ml 600 ml Balance -420 ml -600 ml Intake Oral 780 ml Output Urine Total 1200 ml 600 ml # Bowel Movements 1 Laboratory Tests 09/20/18 05:20: White Blood Count 9.5#, Red Blood Count 2.94L, Hemoglobin 10.4L, Hematocrit 30.2L, Mean Corpuscular Volume 102H, Mean Corpuscular Hemoglobin 35.2H, Mean Corpuscular Hemoglobin Concent 34.3, Red Cell Distribution Width 17.8H, Platelet Count 34L, Mean Platelet Volume 10.7H, Neutrophils (%) (Auto) , Lymphocytes (%) (Auto) , Monocytes (%) (Auto) , Eosinophils (%) (Auto) , Basophils (%) (Auto) , Differential Total Cells Counted 100, Neutrophils % ( Manual) 56, Lymphocytes % (Manual) 35, Monocytes % (Manual) 5, Eosinophils % ( Manual) 3, Basophils % (Manual) 1, Band Neutrophils 0, Nucleated Red Blood Cells 1, Platelet Estimate DecreasedL, Platelet Morphology Normal, Hypochromasia 1+, Anisocytosis 1+, Macrocytosis 1+, Prothrombin Time 17.8H, Prothromb Time International Ratio 1.7H, Activated Partial Thromboplast Time 32 , Sodium Level 131L, Potassium Level 3.9, Chloride Level 98, Carbon Dioxide Level 26, Anion Gap 7, Blood Urea Nitrogen 4L, Creatinine 0.9, Estimat Glomerular Filtration Rate > 60, Glucose Level 100, Uric Acid 3.8, Calcium Level 7.8L, Phosphorus Level 2.4L, Magnesium Level 1.5L, Total Bilirubin 6.3H, Direct Bilirubin 4.6H, Aspartate Amino Transf (AST/SGOT) 304H, Alanine Aminotransferase (ALT/SGPT) 159H, Alkaline Phosphatase 190H, Total Protein 6.0L , Albumin 2.2L, Globulin 3.8, Albumin/Globulin Ratio 0.6L Height (Feet): 5 Height (Inches): 5.00 Weight (Pounds): 140 Objective Thin man NCAT supple CTA RRR Abd Soft ND NT no edema neuro - delirium Aicha Dorantes MD Sep 20, 2018 14:37
[2018-09-20 15:37] VITALS: BP 99/61
[2018-09-20] MEDS ORDERED: Tubing IV Secondary IV ONE (17:04)
[2018-09-20 20:00] VITALS: BP 98/66
--- NOTE | 2018-09-20 20:02 | General Progress Note ---
Assessment/Plan Problem List: (1) Rhabdomyolysis ICD Codes: M62.82 - Rhabdomyolysis SNOMED: 578417849 (2) Cirrhosis ICD Codes: K74.60 - Unspecified cirrhosis of liver SNOMED: 11590131 (3) Pancytopenia ICD Codes: D61.818 - Other pancytopenia SNOMED: 297492284 (4) Liver failure ICD Codes: K72.90 - Hepatic failure, unspecified without coma SNOMED: 09025082 Qualifiers: Qualified Codes: K72.00 - Acute and subacute hepatic failure without coma (5) Alcohol dependence ICD Codes: F10.20 - Alcohol dependence, uncomplicated SNOMED: 52295974 (6) Alcohol withdrawal ICD Codes: F10.239 - Alcohol dependence with withdrawal, unspecified SNOMED: 632970388 (7) Hyponatremia ICD Codes: E87.1 - Hypo-osmolality and hyponatremia SNOMED: 97409233 (8) Electrolyte abnormality ICD Codes: E87.8 - Other disorders of electrolyte and fluid balance, not elsewhere classified SNOMED: 650914622 Status: progressing Assessment: lyte abnormality improving cirrhosis no bleeding no acute events etoh reviewed chart nad labs Subjective ROS Limited/Unobtainable: Yes Allergies: Coded Allergies: No Known Allergies (Unverified , 09/17/18) Objective Last 24 Hour Vital Signs Date Time Temp Pulse Resp B/P (MAP) Pulse Ox O2 Delivery O2 Flow Rate FiO2 09/20/18 16:00 84 09/20/18 15:37 99.2 87 20 99/61 (74) 96 09/20/18 12:07 98.4 95 20 99/60 (73) 96 09/20/18 12:00 82 09/20/18 11:36 99 97/66 09/20/18 09:07 Room Air 09/20/18 08:18 100.1 99 20 97/66 (76) 95 09/20/18 08:00 100 09/20/18 05:39 96 110/62 09/20/18 04:00 96 09/20/18 04:00 98.8 96 18 98/59 (72) 96 09/20/18 01:01 105 117/74 09/20/18 00:00 99 09/20/18 00:00 99.1 99 18 117/68 (84) 96 09/19/18 21:00 Room Air Intake and Output 09/19/18 09/20/18 19:00 07:00 Intake Total 780 ml Output Total 1200 ml 600 ml Balance -420 ml -600 ml Intake Oral 780 ml Output Urine Total 1200 ml 600 ml # Bowel Movements 1 Laboratory Tests 09/20/18 05:20: White Blood Count 9.5#, Red Blood Count 2.94L, Hemoglobin 10.4L, Hematocrit 30.2L, Mean Corpuscular Volume 102H, Mean Corpuscular Hemoglobin 35.2H, Mean Corpuscular Hemoglobin Concent 34.3, Red Cell Distribution Width 17.8H, Platelet Count 34L, Mean Platelet Volume 10.7H, Neutrophils (%) (Auto) , Lymphocytes (%) (Auto) , Monocytes (%) (Auto) , Eosinophils (%) (Auto) , Basophils (%) (Auto) , Differential Total Cells Counted 100, Neutrophils % ( Manual) 56, Lymphocytes % (Manual) 35, Monocytes % (Manual) 5, Eosinophils % ( Manual) 3, Basophils % (Manual) 1, Band Neutrophils 0, Nucleated Red Blood Cells 1, Platelet Estimate DecreasedL, Platelet Morphology Normal, Hypochromasia 1+, Anisocytosis 1+, Macrocytosis 1+, Prothrombin Time 17.8H, Prothromb Time International Ratio 1.7H, Activated Partial Thromboplast Time 32 , Sodium Level 131L, Potassium Level 3.9, Chloride Level 98, Carbon Dioxide Level 26, Anion Gap 7, Blood Urea Nitrogen 4L, Creatinine 0.9, Estimat Glomerular Filtration Rate > 60, Glucose Level 100, Uric Acid 3.8, Calcium Level 7.8L, Phosphorus Level 2.4L, Magnesium Level 1.5L, Total Bilirubin 6.3H, Direct Bilirubin 4.6H, Aspartate Amino Transf (AST/SGOT) 304H, Alanine Aminotransferase (ALT/SGPT) 159H, Alkaline Phosphatase 190H, Total Protein 6.0L , Albumin 2.2L, Globulin 3.8, Albumin/Globulin Ratio 0.6L Height (Feet): 5 Height (Inches): 5.00 Weight (Pounds): 140 Neck: supple Cardiovascular: normal rate Respiratory/Chest: lungs clear Abdomen: soft Sharon Fink MD Sep 20, 2018 20:02
--- NOTE | 2018-09-20 21:14 | Psych Consult Progress Note ---
Psychiatry Progress Note Psychiatry Progress Note Medications Current Medications Medications (Trade) Dose Ordered Sig/Tracey Route PRN Reason Start Time Stop Time Status Last Admin Dose Admin Chlordiazepoxide (Librium) 50 mg Q8HR ORAL 09/18/18 14:00 09/25/18 13:59 09/20/18 21:09 Folic Acid (Folate) 1 mg DAILY ORAL 09/18/18 09:00 10/18/18 08:59 09/20/18 08:32 Haloperidol Lactate (Haldol) 5 mg Q6H PRN IM Agitation 09/20/18 10:15 10/20/18 10:14 Lactulose (Cephulac) 30 gm THREE TIMES A DAY ORAL 09/20/18 18:00 10/18/18 08:59 Lorazepam (Ativan 2mg/ml 1ml) 1 mg Q2H PRN IV For Seizures or Withdrawal Sym 09/18/18 00:15 09/25/18 00:14 09/20/18 19:33 Ondansetron HCl (Zofran) 4 mg Q6H PRN IVP Nausea & Vomiting 09/18/18 00:15 10/18/18 00:14 Pantoprazole (Protonix) 40 mg EVERY 12 HOURS ORAL 09/18/18 09:00 10/18/18 08:59 09/20/18 21:08 Pentoxifylline (TRENtal) 400 mg THREE TIMES A DAY ORAL 09/20/18 18:00 10/20/18 17:59 Propranolol HCl (Inderal) 10 mg Q6HR ORAL 09/19/18 18:00 10/19/18 17:59 09/20/18 05:39 Rifaximin (Xifaxan) 550 mg EVERY 12 HOURS ORAL 09/19/18 21:00 09/26/18 20:59 09/20/18 21:08 Spironolactone (Aldactone) 25 mg EVERY 12 HOURS ORAL 09/18/18 09:00 10/18/18 08:59 09/20/18 21:08 Thiamine HCl (Vitamin B1) 100 mg DAILY ORAL 09/18/18 09:00 10/18/18 08:59 09/20/18 08:32 Problems: (1) Alcohol dependence (2) Alcohol withdrawal Allergies: Coded Allergies: No Known Allergies (Unverified , 09/17/18) Objective Data Height (Feet): 5 Height (Inches): 5.00 Weight (Pounds): 140 Behavior Mannerisms: good eye contact Mental Status Exam - Affect: blunted Mental Status Exam - Mood: anxious, agitated Mental Status Exam - Thought P: disorganized Mental Status Exam - Suicidal: not present Assessment/Plan Problem List: (1) Alcohol dependence ICD Codes: F10.20 - Alcohol dependence, uncomplicated SNOMED: 48320934 (2) Alcohol withdrawal ICD Codes: F10.239 - Alcohol dependence with withdrawal, unspecified SNOMED: 196562504 Status: stable Kenrick Erickson MD Sep 20, 2018 21:13
[2018-09-21] VITALS: BP 102/65
[2018-09-21] MEDS: LORazepam Inj 2mg/ml 1ml IV PRN (00:19)
[2018-09-21] MEDS: Propranolol 10mg tab ORAL SCH ×5 (00:19→23:58)
[2018-09-21 04:00] VITALS: BP 97/67
[2018-09-21] MEDS: chlordiazePOXIDE 25mg Cap ORAL SCH ×3 (05:39→21:16)
[2018-09-21 07:24] LABS: HEMATOCRIT 31.3 % (42.0-52.0); HEMOGLOBIN 10.4 G/DL (14.2-18.0); MEAN CORPUSCULAR VOLUME 103 FL (80-99); PLATELET COUNT 38 K/UL (150-450); RED BLOOD COUNT 3.04 M/UL (4.70-6.10); RED CELL DISTRIBUTION WIDTH 17.7 % (11.6-14.8); WHITE BLOOD COUNT 4.7 K/UL (4.8-10.8)
[2018-09-21 07:38] LABS: INR 1.7 (0.9-1.1)
[2018-09-21 07:43] LABS: ALANINE AMINOTRANSFERASE 127 U/L (12-78); ALBUMIN 2.2 G/DL (3.4-5.0); ALBUMIN/GLOBULIN RATIO 0.6 (1.0-2.7); ALKALINE PHOSPHATASE 195 U/L (46-116); ANION GAP 7 mmol/L (5-15); ASPARTATE AMINO TRANSFERASE 197 U/L (15-37); BILIRUBIN,TOTAL 5.4 MG/DL (0.2-1.0); BLOOD UREA NITROGEN 5 mg/dL (7-18); CALCIUM 7.6 MG/DL (8.5-10.1); CARBON DIOXIDE 27 MMOL/L (21-32); CHLORIDE 100 MMOL/L (98-107); CREATININE 0.9 MG/DL (0.55-1.30); PHOSPHORUS 3.1 MG/DL (2.5-4.9); POTASSIUM 3.7 MMOL/L (3.5-5.1); SODIUM 134 MMOL/L (136-145)
[2018-09-21 07:44] LABS: BILIRUBIN,DIRECT 3.9 MG/DL (0.0-0.3)
[2018-09-21 08:00] VITALS: BP 91/55
[2018-09-21] MEDS: Lactulose 20gm/30ml UDC ORAL SCH ×3 (08:16→17:20)
[2018-09-21] MEDS: Spironolactone 25mg tab ORAL SCH ×2 (08:17→21:16)
[2018-09-21] MEDS: Thiamine 100mg tab ORAL SCH (08:17)
[2018-09-21 10:28] LABS: APTT 1:1 NORMAL PLASMA 26.3 sec (22.9-30.2); APTT 1:1NP MIX 60M INCUBATION 27.5 sec (22.9-30.2); APTT 1:1NP MIX CONTROL 29.3 sec (22.9-30.2)
[2018-09-21 12:00] VITALS: BP 104/68
[2018-09-21 16:00] VITALS: BP 93/69
--- NOTE | 2018-09-21 17:37 | General Progress Note ---
Assessment/Plan Plan: Assessment/Plan Problems: (1) Alcohol withdrawal ICD Codes: F10.239 - Alcohol dependence with withdrawal, unspecified SNOMED: 968444883 (2) Liver failure ICD Codes: K72.90 - Hepatic failure, unspecified without coma SNOMED: 26083215 Qualifiers: Qualified Codes: K72.00 - Acute and subacute hepatic failure without coma (3) Pancytopenia ICD Codes: D61.818 - Other pancytopenia SNOMED: 445529988 (4) Coagulopathy ICD Codes: D68.9 - Coagulation defect, unspecified SNOMED: 32228552 (5) Cirrhosis ICD Codes: K74.60 - Unspecified cirrhosis of liver SNOMED: 51713251 (6) Mild epistaxis ICD Codes: R04.0 - Epistaxis SNOMED: 686162215 Status: stable, unchanged (7) EtOH hepatitis Assessment/Plan Abdominal ultrasound reviewed noted with cholelithiasis and gallbladder sludge, no biliary ductal dilation, cirrhosis. anemia work up reviewed OB stool collected, pending final read Stable H&H Low-sodium diet monitor H&H, prn transfusions bowel regime ppi vit K Banana bag Ativan as needed Lactulose plus xifaxan Patient instructed to avoid alcohol fu labs, hepatitis panel Patient could benefit from outpatient endoscopy to rule out esophageal varices Trental for EtOH hepatitis Subjective Allergies: Coded Allergies: No Known Allergies (Unverified , 09/17/18) Subjective above noted confused poor po intake Objective Last 24 Hour Vital Signs Date Time Temp Pulse Resp B/P (MAP) Pulse Ox O2 Delivery O2 Flow Rate FiO2 09/21/18 17:21 93/69 09/21/18 17:20 86 93/69 09/21/18 16:00 97.8 84 18 93/69 (77) 98 09/21/18 16:00 86 09/21/18 12:14 104/68 09/21/18 12:00 98.4 96 20 104/68 (80) 97 09/21/18 12:00 87 09/21/18 12:00 96 104/68 09/21/18 09:00 Room Air 09/21/18 08:42 91/55 09/21/18 08:00 97.8 89 18 91/55 (67) 97 09/21/18 08:00 83 09/21/18 05:40 88 104/66 09/21/18 04:00 99.6 96 18 97/67 (77) 98 09/21/18 04:00 96 09/21/18 00:19 96 108/66 09/21/18 00:00 99.5 95 18 102/65 (77) 99 09/21/18 00:00 95 09/20/18 21:00 Room Air 09/20/18 20:00 90 09/20/18 20:00 98.8 90 18 98/66 (77) 96 Intake and Output 09/20/18 09/21/18 19:00 07:00 Intake Total 450 ml Output Total 200 ml 300 ml Balance 250 ml -300 ml Intake Oral 450 ml Output Urine Total 200 ml 300 ml # Voids 1 Laboratory Tests 09/21/18 06:10: White Blood Count 4.7#L, Red Blood Count 3.04L, Hemoglobin 10.4L, Hematocrit 31.3L, Mean Corpuscular Volume 103H, Mean Corpuscular Hemoglobin 34.3H, Mean Corpuscular Hemoglobin Concent 33.3, Red Cell Distribution Width 17.7H, Platelet Count 38L, Mean Platelet Volume 9.6, Neutrophils (%) (Auto) , Lymphocytes (%) (Auto) , Monocytes (%) (Auto) , Eosinophils (%) (Auto) , Basophils (%) (Auto) , Differential Total Cells Counted 100, Neutrophils % ( Manual) 57, Lymphocytes % (Manual) 30, Monocytes % (Manual) 10, Eosinophils % ( Manual) 3, Basophils % (Manual) 0, Band Neutrophils 0, Platelet Estimate DecreasedL, Platelet Morphology Normal, Polychromasia 1+, Hypochromasia 1+, Anisocytosis 1+, Macrocytosis 1+, Target Cells Occasional, Prothrombin Time 17.3H, Prothromb Time International Ratio 1.7H, Sodium Level 134L, Potassium Level 3.7, Chloride Level 100, Carbon Dioxide Level 27, Anion Gap 7, Blood Urea Nitrogen 5L, Creatinine 0.9, Estimat Glomerular Filtration Rate > 60, Glucose Level 128H, Osmolality 288L, Uric Acid 4.1, Calcium Level 7.6L, Phosphorus Level 3.1, Magnesium Level 1.8, Total Bilirubin 5.4H, Direct Bilirubin 3.9H, Aspartate Amino Transf (AST/SGOT) 197H, Alanine Aminotransferase (ALT/SGPT) 127H , Alkaline Phosphatase 195H, Pro-B-Type Natriuretic Peptide 40, Total Protein 6.0L, Albumin 2.2L, Globulin 3.8, Albumin/Globulin Ratio 0.6L Height (Feet): 5 Height (Inches): 5.00 Weight (Pounds): 140 Objective Thin man NCAT supple CTA RRR Abd Soft ND NT no edema neuro - delirium Aicha Dorantes MD Sep 21, 2018 17:37
--- NOTE | 2018-09-21 18:53 | Nephrology Progress Note ---
Assessment/Plan Problem List: (1) Electrolyte abnormality (2) Cirrhosis (3) Pancytopenia (4) Hyponatremia (5) Coagulopathy Assessment Coagulopathy due to liver pathology: INR 2.2 Thrombocytopenia due to cirrhosis mild anemia mild epistaxis mild HypoNatremia due to cirrhosis and low Albumin High LFTs abd Bili Plan lactulose protonix Aldactone per GI and Hematology Vit K 2gr Na diet Subjective ROS Limited/Unobtainable: No Objective Objective Last 24 Hour Vital Signs Date Time Temp Pulse Resp B/P (MAP) Pulse Ox O2 Delivery O2 Flow Rate FiO2 09/21/18 17:21 93/69 09/21/18 17:20 86 93/69 09/21/18 16:00 97.8 84 18 93/69 (77) 98 09/21/18 16:00 86 09/21/18 12:14 104/68 09/21/18 12:00 98.4 96 20 104/68 (80) 97 09/21/18 12:00 87 09/21/18 12:00 96 104/68 09/21/18 09:00 Room Air 09/21/18 08:42 91/55 09/21/18 08:00 97.8 89 18 91/55 (67) 97 09/21/18 08:00 83 09/21/18 05:40 88 104/66 09/21/18 04:00 99.6 96 18 97/67 (77) 98 09/21/18 04:00 96 09/21/18 00:19 96 108/66 09/21/18 00:00 99.5 95 18 102/65 (77) 99 09/21/18 00:00 95 09/20/18 21:00 Room Air 09/20/18 20:00 90 09/20/18 20:00 98.8 90 18 98/66 (77) 96 Intake and Output 09/20/18 09/21/18 19:00 07:00 Intake Total 450 ml Output Total 200 ml 300 ml Balance 250 ml -300 ml Intake Oral 450 ml Output Urine Total 200 ml 300 ml # Voids 1 Laboratory Tests 09/21/18 06:10: White Blood Count 4.7#L, Red Blood Count 3.04L, Hemoglobin 10.4L, Hematocrit 31.3L, Mean Corpuscular Volume 103H, Mean Corpuscular Hemoglobin 34.3H, Mean Corpuscular Hemoglobin Concent 33.3, Red Cell Distribution Width 17.7H, Platelet Count 38L, Mean Platelet Volume 9.6, Neutrophils (%) (Auto) , Lymphocytes (%) (Auto) , Monocytes (%) (Auto) , Eosinophils (%) (Auto) , Basophils (%) (Auto) , Differential Total Cells Counted 100, Neutrophils % ( Manual) 57, Lymphocytes % (Manual) 30, Monocytes % (Manual) 10, Eosinophils % ( Manual) 3, Basophils % (Manual) 0, Band Neutrophils 0, Platelet Estimate DecreasedL, Platelet Morphology Normal, Polychromasia 1+, Hypochromasia 1+, Anisocytosis 1+, Macrocytosis 1+, Target Cells Occasional, Prothrombin Time 17.3H, Prothromb Time International Ratio 1.7H, Sodium Level 134L, Potassium Level 3.7, Chloride Level 100, Carbon Dioxide Level 27, Anion Gap 7, Blood Urea Nitrogen 5L, Creatinine 0.9, Estimat Glomerular Filtration Rate > 60, Glucose Level 128H, Osmolality 288L, Uric Acid 4.1, Calcium Level 7.6L, Phosphorus Level 3.1, Magnesium Level 1.8, Total Bilirubin 5.4H, Direct Bilirubin 3.9H, Aspartate Amino Transf (AST/SGOT) 197H, Alanine Aminotransferase (ALT/SGPT) 127H , Alkaline Phosphatase 195H, Pro-B-Type Natriuretic Peptide 40, Total Protein 6.0L, Albumin 2.2L, Globulin 3.8, Albumin/Globulin Ratio 0.6L Height (Feet): 5 Height (Inches): 5.00 Weight (Pounds): 140 General Appearance: no apparent distress Cardiovascular: normal rate Respiratory/Chest: decreased breath sounds Abdomen: distended Objective no change Serg Baumann MD Sep 21, 2018 18:53
[2018-09-21 20:00] VITALS: BP 103/68
--- NOTE | 2018-09-21 22:13 | General Progress Note ---
Assessment/Plan Problem List: (1) Rhabdomyolysis ICD Codes: M62.82 - Rhabdomyolysis SNOMED: 311393273 (2) Cirrhosis ICD Codes: K74.60 - Unspecified cirrhosis of liver SNOMED: 85928133 (3) Pancytopenia ICD Codes: D61.818 - Other pancytopenia SNOMED: 556717572 (4) Liver failure ICD Codes: K72.90 - Hepatic failure, unspecified without coma SNOMED: 19138917 Qualifiers: Qualified Codes: K72.00 - Acute and subacute hepatic failure without coma (5) Alcohol dependence ICD Codes: F10.20 - Alcohol dependence, uncomplicated SNOMED: 05768890 (6) Alcohol withdrawal ICD Codes: F10.239 - Alcohol dependence with withdrawal, unspecified SNOMED: 617052550 (7) Hyponatremia ICD Codes: E87.1 - Hypo-osmolality and hyponatremia SNOMED: 85906993 (8) Electrolyte abnormality ICD Codes: E87.8 - Other disorders of electrolyte and fluid balance, not elsewhere classified SNOMED: 158838722 Status: progressing Assessment: lyte abnormality improving pancytopenia reivewed chart and labs no fever cirrhosis etoh Subjective ROS Limited/Unobtainable: Yes Allergies: Coded Allergies: No Known Allergies (Unverified , 09/17/18) Objective Last 24 Hour Vital Signs Date Time Temp Pulse Resp B/P (MAP) Pulse Ox O2 Delivery O2 Flow Rate FiO2 09/21/18 17:21 93/69 09/21/18 17:20 86 93/69 09/21/18 16:00 97.8 84 18 93/69 (77) 98 09/21/18 16:00 86 09/21/18 12:14 104/68 09/21/18 12:00 98.4 96 20 104/68 (80) 97 09/21/18 12:00 87 09/21/18 12:00 96 104/68 09/21/18 09:00 Room Air 09/21/18 08:42 91/55 09/21/18 08:00 97.8 89 18 91/55 (67) 97 09/21/18 08:00 83 09/21/18 05:40 88 104/66 09/21/18 04:00 99.6 96 18 97/67 (77) 98 09/21/18 04:00 96 09/21/18 00:19 96 108/66 09/21/18 00:00 99.5 95 18 102/65 (77) 99 09/21/18 00:00 95 Intake and Output 09/20/18 09/21/18 19:00 07:00 Intake Total 450 ml Output Total 200 ml 300 ml Balance 250 ml -300 ml Intake Oral 450 ml Output Urine Total 200 ml 300 ml # Voids 1 Laboratory Tests 09/21/18 06:10: White Blood Count 4.7#L, Red Blood Count 3.04L, Hemoglobin 10.4L, Hematocrit 31.3L, Mean Corpuscular Volume 103H, Mean Corpuscular Hemoglobin 34.3H, Mean Corpuscular Hemoglobin Concent 33.3, Red Cell Distribution Width 17.7H, Platelet Count 38L, Mean Platelet Volume 9.6, Neutrophils (%) (Auto) , Lymphocytes (%) (Auto) , Monocytes (%) (Auto) , Eosinophils (%) (Auto) , Basophils (%) (Auto) , Differential Total Cells Counted 100, Neutrophils % ( Manual) 57, Lymphocytes % (Manual) 30, Monocytes % (Manual) 10, Eosinophils % ( Manual) 3, Basophils % (Manual) 0, Band Neutrophils 0, Platelet Estimate DecreasedL, Platelet Morphology Normal, Polychromasia 1+, Hypochromasia 1+, Anisocytosis 1+, Macrocytosis 1+, Target Cells Occasional, Prothrombin Time 17.3H, Prothromb Time International Ratio 1.7H, Sodium Level 134L, Potassium Level 3.7, Chloride Level 100, Carbon Dioxide Level 27, Anion Gap 7, Blood Urea Nitrogen 5L, Creatinine 0.9, Estimat Glomerular Filtration Rate > 60, Glucose Level 128H, Osmolality 288L, Uric Acid 4.1, Calcium Level 7.6L, Phosphorus Level 3.1, Magnesium Level 1.8, Total Bilirubin 5.4H, Direct Bilirubin 3.9H, Aspartate Amino Transf (AST/SGOT) 197H, Alanine Aminotransferase (ALT/SGPT) 127H , Alkaline Phosphatase 195H, Pro-B-Type Natriuretic Peptide 40, Total Protein 6.0L, Albumin 2.2L, Globulin 3.8, Albumin/Globulin Ratio 0.6L Height (Feet): 5 Height (Inches): 5.00 Weight (Pounds): 140 Cardiovascular: normal rate Respiratory/Chest: lungs clear Abdomen: soft Hadadz,Ali MD Sep 21, 2018 22:12
--- NOTE | 2018-09-21 23:35 | Psych Consult Progress Note ---
Psychiatry Progress Note Psychiatry Progress Note Medications Current Medications Medications (Trade) Dose Ordered Sig/Tracey Route PRN Reason Start Time Stop Time Status Last Admin Dose Admin Chlordiazepoxide (Librium) 50 mg Q8HR ORAL 09/18/18 14:00 09/25/18 13:59 09/21/18 21:16 Folic Acid (Folate) 1 mg DAILY ORAL 09/18/18 09:00 10/18/18 08:59 09/21/18 08:17 Haloperidol Lactate (Haldol) 5 mg Q6H PRN IM Agitation 09/20/18 10:15 10/20/18 10:14 09/21/18 04:14 Lactulose (Cephulac) 30 gm THREE TIMES A DAY ORAL 09/20/18 18:00 10/18/18 08:59 09/21/18 17:20 Lorazepam (Ativan 2mg/ml 1ml) 1 mg Q2H PRN IV For Seizures or Withdrawal Sym 09/18/18 00:15 09/25/18 00:14 09/21/18 00:19 Ondansetron HCl (Zofran) 4 mg Q6H PRN IVP Nausea & Vomiting 09/18/18 00:15 10/18/18 00:14 Pantoprazole (Protonix) 40 mg EVERY 12 HOURS ORAL 09/18/18 09:00 10/18/18 08:59 09/21/18 21:16 Pentoxifylline (TRENtal) 400 mg THREE TIMES A DAY ORAL 09/20/18 18:00 10/20/18 17:59 Propranolol HCl (Inderal) 10 mg Q6HR ORAL 09/19/18 18:00 10/19/18 17:59 09/21/18 05:40 Rifaximin (Xifaxan) 550 mg EVERY 12 HOURS ORAL 09/19/18 21:00 09/26/18 20:59 09/21/18 21:16 Spironolactone (Aldactone) 25 mg EVERY 12 HOURS ORAL 09/18/18 09:00 10/18/18 08:59 09/21/18 21:16 Thiamine HCl (Vitamin B1) 100 mg DAILY ORAL 09/18/18 09:00 10/18/18 08:59 09/21/18 08:17 Problems: (1) Alcohol dependence (2) Alcohol withdrawal Neurological/Psychiatric: Reports: anxiety, depressed, emotional problems Allergies: Coded Allergies: No Known Allergies (Unverified , 09/17/18) Objective Data Height (Feet): 5 Height (Inches): 5.00 Weight (Pounds): 140 General Appearance: WD/WN, no apparent distress, alert Behavior Mannerisms: good eye contact Mental Status Exam - Affect: blunted Mental Status Exam - Mood: anxious, agitated Assessment/Plan Problem List: (1) Alcohol dependence ICD Codes: F10.20 - Alcohol dependence, uncomplicated SNOMED: 48238578 (2) Alcohol withdrawal ICD Codes: F10.239 - Alcohol dependence with withdrawal, unspecified SNOMED: 258050939 Status: progressing Kenrick Erickson MD Sep 21, 2018 23:35
[2018-09-22] VITALS: BP 105/65
[2018-09-22 04:00] VITALS: BP 97/64
[2018-09-22] MEDS: chlordiazePOXIDE 25mg Cap ORAL SCH ×3 (05:11→21:15)
[2018-09-22] MEDS: Propranolol 10mg tab ORAL SCH ×3 (05:11→17:45)
[2018-09-22 05:49] LABS: INR 1.6 (0.9-1.1)
[2018-09-22 05:52] LABS: HEMATOCRIT 31.9 % (42.0-52.0); HEMOGLOBIN 10.6 G/DL (14.2-18.0); MEAN CORPUSCULAR VOLUME 106 FL (80-99); PLATELET COUNT 50 K/UL (150-450); RED BLOOD COUNT 3.01 M/UL (4.70-6.10); RED CELL DISTRIBUTION WIDTH 18.1 % (11.6-14.8)
[2018-09-22 05:56] LABS: PHOSPHORUS 3.6 MG/DL (2.5-4.9)
[2018-09-22 06:13] LABS: ALANINE AMINOTRANSFERASE 121 U/L (12-78); ALBUMIN 2.3 G/DL (3.4-5.0); ALBUMIN/GLOBULIN RATIO 0.6 (1.0-2.7); ALKALINE PHOSPHATASE 213 U/L (46-116); ANION GAP 7 mmol/L (5-15); ASPARTATE AMINO TRANSFERASE 169 U/L (15-37); BILIRUBIN,TOTAL 4.2 MG/DL (0.2-1.0); BLOOD UREA NITROGEN 6 mg/dL (7-18); CALCIUM 7.9 MG/DL (8.5-10.1); CARBON DIOXIDE 27 MMOL/L (21-32); CHLORIDE 98 MMOL/L (98-107); POTASSIUM 4.3 MMOL/L (3.5-5.1); SODIUM 132 MMOL/L (136-145)
[2018-09-22 06:16] LABS: BILIRUBIN,DIRECT 3.2 MG/DL (0.0-0.3)
[2018-09-22 08:00] VITALS: BP 98/57
[2018-09-22] MEDS: Thiamine 100mg tab ORAL SCH (08:36)
[2018-09-22] MEDS: Spironolactone 25mg tab ORAL SCH ×2 (08:38→20:41)
[2018-09-22] MEDS: Lactulose 20gm/30ml UDC ORAL SCH ×3 (08:38→17:42)
--- NOTE | 2018-09-22 10:31 | Nephrology Progress Note ---
Assessment/Plan Problem List: (1) Electrolyte abnormality (2) Cirrhosis (3) Pancytopenia (4) Hyponatremia (5) Coagulopathy Assessment Coagulopathy due to liver pathology: INR 2.2 Thrombocytopenia due to cirrhosis mild anemia mild epistaxis mild HypoNatremia due to cirrhosis and low Albumin High LFTs abd Bili Plan lactulose mag supplement Midodrine protonix Aldactone per GI and Hematology Vit K 2gr Na diet Subjective ROS Limited/Unobtainable: No Constitutional: Reports: malaise Objective Objective Last 24 Hour Vital Signs Date Time Temp Pulse Resp B/P (MAP) Pulse Ox O2 Delivery O2 Flow Rate FiO2 09/22/18 09:00 Room Air 09/22/18 08:37 98/57 09/22/18 08:00 98.5 87 18 98/57 (71) 98 09/22/18 08:00 85 09/22/18 05:11 65 98/65 09/22/18 04:00 88 09/22/18 04:00 98.6 92 18 97/64 (75) 96 09/22/18 00:00 98 09/22/18 00:00 99.1 91 18 105/65 (78) 96 09/21/18 23:58 91 105/65 09/21/18 21:00 Room Air 09/21/18 20:00 98.6 92 18 103/68 (80) 95 09/21/18 20:00 92 09/21/18 17:21 93/69 09/21/18 17:20 86 93/69 09/21/18 16:00 97.8 84 18 93/69 (77) 98 09/21/18 16:00 86 09/21/18 12:14 104/68 09/21/18 12:00 98.4 96 20 104/68 (80) 97 09/21/18 12:00 87 09/21/18 12:00 96 104/68 Intake and Output 09/21/18 09/22/18 18:59 06:59 Intake Total 360 ml 120 ml Balance 360 ml 120 ml Intake Oral 360 ml 120 ml # Voids 3 2 # Bowel Movements 4 1 Laboratory Tests 09/22/18 05:20: White Blood Count 10.0#, Red Blood Count 3.01L, Hemoglobin 10.6L, Hematocrit 31.9L, Mean Corpuscular Volume 106H, Mean Corpuscular Hemoglobin 35.3H, Mean Corpuscular Hemoglobin Concent 33.2, Red Cell Distribution Width 18.1H, Platelet Count 50L, Mean Platelet Volume 8.9, Neutrophils (%) (Auto) , Lymphocytes (%) (Auto) , Monocytes (%) (Auto) , Eosinophils (%) (Auto) , Basophils (%) (Auto) , Prothrombin Time 16.4H, Prothromb Time International Ratio 1.6H, Sodium Level 132L, Potassium Level 4.3, Chloride Level 98, Carbon Dioxide Level 27, Anion Gap 7, Blood Urea Nitrogen 6L, Creatinine 1.0, Estimat Glomerular Filtration Rate > 60, Glucose Level 119H, Calcium Level 7.9L, Phosphorus Level 3.6, Magnesium Level 1.5L, Total Bilirubin 4.2H, Direct Bilirubin 3.2H, Aspartate Amino Transf (AST/SGOT) 169H, Alanine Aminotransferase (ALT/SGPT) 121H, Alkaline Phosphatase 213H, Ammonia 26, Total Protein 6.3L, Albumin 2.3L, Globulin 4.0, Albumin/Globulin Ratio 0.6L, Cortisol AM Sample [Pending] Height (Feet): 5 Height (Inches): 5.00 Weight (Pounds): 140 General Appearance: no apparent distress Objective no change Serg Baumann MD Sep 22, 2018 10:31
--- NOTE | 2018-09-22 10:57 | General Progress Note ---
Assessment/Plan Plan: Assessment/Plan Plan: Assessment/Plan Problems: (1) Alcohol withdrawal ICD Codes: F10.239 - Alcohol dependence with withdrawal, unspecified SNOMED: 262046359 (2) Liver failure ICD Codes: K72.90 - Hepatic failure, unspecified without coma SNOMED: 27055787 Qualifiers: Qualified Codes: K72.00 - Acute and subacute hepatic failure without coma (3) Pancytopenia ICD Codes: D61.818 - Other pancytopenia SNOMED: 887764388 (4) Coagulopathy ICD Codes: D68.9 - Coagulation defect, unspecified SNOMED: 26215220 (5) Cirrhosis ICD Codes: K74.60 - Unspecified cirrhosis of liver SNOMED: 74213343 (6) Mild epistaxis ICD Codes: R04.0 - Epistaxis SNOMED: 163798138 Status: stable, unchanged (7) EtOH hepatitis Assessment/Plan Abdominal ultrasound reviewed noted with cholelithiasis and gallbladder sludge, no biliary ductal dilation, cirrhosis. anemia work up reviewed OB stool collected, pending final read Stable H&H Low-sodium diet monitor H&H, prn transfusions bowel regime ppi vit K Banana bag Ativan as needed Lactulose plus xifaxan Patient instructed to avoid alcohol fu labs, hepatitis panel Patient could benefit from outpatient endoscopy to rule out esophageal varices Trental for EtOH hepatitis Subjective Allergies: Coded Allergies: No Known Allergies (Unverified , 09/17/18) Subjective more awake responsive ate Objective Last 24 Hour Vital Signs Date Time Temp Pulse Resp B/P (MAP) Pulse Ox O2 Delivery O2 Flow Rate FiO2 09/22/18 09:00 Room Air 09/22/18 08:37 98/57 09/22/18 08:00 98.5 87 18 98/57 (71) 98 09/22/18 08:00 85 09/22/18 05:11 65 98/65 09/22/18 04:00 88 09/22/18 04:00 98.6 92 18 97/64 (75) 96 09/22/18 00:00 98 09/22/18 00:00 99.1 91 18 105/65 (78) 96 09/21/18 23:58 91 105/65 09/21/18 21:00 Room Air 09/21/18 20:00 98.6 92 18 103/68 (80) 95 09/21/18 20:00 92 09/21/18 17:21 93/69 09/21/18 17:20 86 93/69 09/21/18 16:00 97.8 84 18 93/69 (77) 98 09/21/18 16:00 86 09/21/18 12:14 104/68 09/21/18 12:00 98.4 96 20 104/68 (80) 97 09/21/18 12:00 87 09/21/18 12:00 96 104/68 Intake and Output 09/21/18 09/22/18 18:59 06:59 Intake Total 360 ml 120 ml Balance 360 ml 120 ml Intake Oral 360 ml 120 ml # Voids 3 2 # Bowel Movements 4 1 Laboratory Tests 09/22/18 05:20: White Blood Count 10.0#, Red Blood Count 3.01L, Hemoglobin 10.6L, Hematocrit 31.9L, Mean Corpuscular Volume 106H, Mean Corpuscular Hemoglobin 35.3H, Mean Corpuscular Hemoglobin Concent 33.2, Red Cell Distribution Width 18.1H, Platelet Count 50L, Mean Platelet Volume 8.9, Neutrophils (%) (Auto) , Lymphocytes (%) (Auto) , Monocytes (%) (Auto) , Eosinophils (%) (Auto) , Basophils (%) (Auto) , Prothrombin Time 16.4H, Prothromb Time International Ratio 1.6H, Sodium Level 132L, Potassium Level 4.3, Chloride Level 98, Carbon Dioxide Level 27, Anion Gap 7, Blood Urea Nitrogen 6L, Creatinine 1.0, Estimat Glomerular Filtration Rate > 60, Glucose Level 119H, Calcium Level 7.9L, Phosphorus Level 3.6, Magnesium Level 1.5L, Total Bilirubin 4.2H, Direct Bilirubin 3.2H, Aspartate Amino Transf (AST/SGOT) 169H, Alanine Aminotransferase (ALT/SGPT) 121H, Alkaline Phosphatase 213H, Ammonia 26, Total Protein 6.3L, Albumin 2.3L, Globulin 4.0, Albumin/Globulin Ratio 0.6L, Cortisol AM Sample [Pending] Height (Feet): 5 Height (Inches): 5.00 Weight (Pounds): 140 Objective Thin man NCAT supple CTA RRR Abd Soft ND NT no edema neuro - delirium Aicha Dorantes MD Sep 22, 2018 10:57
[2018-09-22] MEDS: Midodrine 10mg tab ORAL SCH ×3 (11:00→17:43)
[2018-09-22 12:00] VITALS: BP 93/58
[2018-09-22 16:00] VITALS: BP_SYST 168; BP_SYST 94; BP_DIAS 66; BP_DIAS 84
[2018-09-22 20:00] VITALS: BP 94/57
--- NOTE | 2018-09-22 21:20 | Psych Consult Progress Note ---
Psychiatry Progress Note Psychiatry Progress Note Medications Current Medications Medications (Trade) Dose Ordered Sig/Tracey Route PRN Reason Start Time Stop Time Status Last Admin Dose Admin Chlordiazepoxide (Librium) 50 mg Q8HR ORAL 09/18/18 14:00 09/25/18 13:59 09/22/18 21:15 Folic Acid (Folate) 1 mg DAILY ORAL 09/18/18 09:00 10/18/18 08:59 09/22/18 08:36 Haloperidol Lactate (Haldol) 5 mg Q6H PRN IM Agitation 09/20/18 10:15 10/20/18 10:14 09/21/18 04:14 Lactulose (Cephulac) 30 gm THREE TIMES A DAY ORAL 09/20/18 18:00 10/18/18 08:59 09/22/18 17:42 Lorazepam (Ativan 2mg/ml 1ml) 1 mg Q2H PRN IV For Seizures or Withdrawal Sym 09/18/18 00:15 09/25/18 00:14 09/21/18 00:19 Midodrine (Pro-Amatine) 5 mg THREE TIMES A DAY ORAL 09/22/18 10:30 10/22/18 10:29 09/22/18 17:43 Ondansetron HCl (Zofran) 4 mg Q6H PRN IVP Nausea & Vomiting 09/18/18 00:15 10/18/18 00:14 Pantoprazole (Protonix) 40 mg EVERY 12 HOURS ORAL 09/18/18 09:00 10/18/18 08:59 09/22/18 20:41 Pentoxifylline (TRENtal) 400 mg THREE TIMES A DAY ORAL 09/20/18 18:00 10/20/18 17:59 Propranolol HCl (Inderal) 10 mg Q6HR ORAL 09/19/18 18:00 10/19/18 17:59 09/21/18 05:40 Rifaximin (Xifaxan) 550 mg EVERY 12 HOURS ORAL 09/19/18 21:00 09/26/18 20:59 09/22/18 20:41 Spironolactone (Aldactone) 25 mg EVERY 12 HOURS ORAL 09/18/18 09:00 10/18/18 08:59 09/22/18 20:41 Thiamine HCl (Vitamin B1) 100 mg DAILY ORAL 09/18/18 09:00 10/18/18 08:59 09/22/18 08:36 Problems: (1) Alcohol dependence (2) Alcohol withdrawal Allergies: Coded Allergies: No Known Allergies (Unverified , 09/17/18) Objective Data Height (Feet): 5 Height (Inches): 5.00 Weight (Pounds): 140 General Appearance: WD/WN, no apparent distress, alert Appearance: disheveled Behavior Mannerisms: good eye contact Mental Status Exam - Affect: constricted Mental Status Exam - Mood: irritable, anxious Speech: clear Mental Status Exam - Thought P: goal-directed Mental Status Exam - Suicidal: not present Assessment/Plan Problem List: (1) Alcohol dependence ICD Codes: F10.20 - Alcohol dependence, uncomplicated SNOMED: 22807545 (2) Alcohol withdrawal ICD Codes: F10.239 - Alcohol dependence with withdrawal, unspecified SNOMED: 785514498 Status: stable, progressing Kenrick Erickson MD Sep 22, 2018 21:20
[2018-09-23] VITALS: BP 96/55
[2018-09-23 04:00] VITALS: BP 92/53
[2018-09-23] MEDS: Propranolol 10mg tab ORAL SCH ×3 (05:44→12:00)
[2018-09-23] MEDS: chlordiazePOXIDE 25mg Cap ORAL SCH (06:03)
[2018-09-23 08:00] VITALS: BP 107/67
[2018-09-23] MEDS: Midodrine 10mg tab ORAL SCH ×2 (08:05→13:00)
[2018-09-23] MEDS: Lactulose 20gm/30ml UDC ORAL SCH ×2 (08:05→13:00)
[2018-09-23] MEDS: Spironolactone 25mg tab ORAL SCH (08:05)
[2018-09-23] MEDS: Thiamine 100mg tab ORAL SCH (08:06)
--- NOTE | 2018-09-23 10:54 | GI Progress Note ---
Assessment/Plan Problems: (1) Alcohol withdrawal ICD Codes: F10.239 - Alcohol dependence with withdrawal, unspecified SNOMED: 428716756 (2) Liver failure ICD Codes: K72.90 - Hepatic failure, unspecified without coma SNOMED: 34101765 Qualifiers: Qualified Codes: K72.00 - Acute and subacute hepatic failure without coma (3) Pancytopenia ICD Codes: D61.818 - Other pancytopenia SNOMED: 615331683 (4) Coagulopathy ICD Codes: D68.9 - Coagulation defect, unspecified SNOMED: 15039172 (5) Cirrhosis ICD Codes: K74.60 - Unspecified cirrhosis of liver SNOMED: 10562539 (6) Mild epistaxis ICD Codes: R04.0 - Epistaxis SNOMED: 634561207 Status: stable Status Narrative Discussed with Dr. Kirby Assessment/Plan Abdominal ultrasound reviewed noted with cholelithiasis and gallbladder sludge, no biliary ductal dilation, cirrhosis. anemia work up reviewed OB stool negative Stable H&H Discriminant function calculated, patient does not require steroid therapy at this time Hepatitis panel negative Low-sodium diet monitor H&H, prn transfusions bowel regime ppi vit K Banana bag Ativan as needed Lactulose plus xifaxan Patient instructed to avoid alcohol fu labs Patient could benefit from outpatient endoscopy to rule out esophageal varices trental added DC planning The patient was seen and examined at bedside and all new and available data was reviewed in the patients chart. I agree with the above findings, impression and plan. (Patient seen earlier today. Signature stamp does not reflect patient encounter time.). - Nestor Kirby MD Subjective Subjective denies any abdominal pain, denies any nausea or vomiting Objective Last 24 Hour Vital Signs Date Time Temp Pulse Resp B/P (MAP) Pulse Ox O2 Delivery O2 Flow Rate FiO2 09/23/18 09:00 Room Air 09/23/18 08:05 93/53 09/23/18 08:00 99.0 92 18 107/67 (80) 99 09/23/18 08:00 99.0 92 18 107/67 (80) 99 09/23/18 05:44 111 93/53 09/23/18 04:00 103 09/23/18 04:00 99.5 111 18 92/53 (66) 99 09/23/18 00:00 98.2 89 16 96/55 (69) 99 09/23/18 00:00 89 96/55 09/23/18 00:00 72 09/22/18 21:00 Room Air 09/22/18 20:00 98.3 86 20 94/57 (69) 99 09/22/18 20:00 79 09/22/18 17:45 94/66 09/22/18 17:45 85 94/66 09/22/18 16:00 97.5 63 18 168/84 (112) 98 09/22/18 16:00 85 09/22/18 13:00 95/52 09/22/18 12:00 98.4 84 18 93/58 (70) 96 09/22/18 12:00 68 95/52 09/22/18 12:00 84 Intake and Output 09/22/18 09/23/18 18:59 06:59 Intake Total 760 ml 300 ml Output Total 400 ml Balance 760 ml -100 ml Intake Oral 360 ml 300 ml IV Total 400 ml Output Urine Total 400 ml # Voids 3 # Bowel Movements 3 1 Height (Feet): 5 Height (Inches): 5.00 Weight (Pounds): 140 General Appearance: WD/WN, no apparent distress, alert Cardiovascular: normal rate Respiratory/Chest: normal breath sounds, no respiratory distress Abdominal Exam: normal bowel sounds, non tender, soft Extremities: normal range of motion, non-tender Jeet Russ [employer] SWEEPER OPERATOR Sep 23, 2018 10:54
--- NOTE | 2018-09-23 12:12 | Psych Consult Progress Note ---
Psychiatry Progress Note Psychiatry Progress Note Medications Current Medications Medications (Trade) Dose Ordered Sig/Tracey Route PRN Reason Start Time Stop Time Status Last Admin Dose Admin Chlordiazepoxide (Librium) 50 mg Q8HR ORAL 09/18/18 14:00 09/25/18 13:59 09/23/18 06:03 Folic Acid (Folate) 1 mg DAILY ORAL 09/18/18 09:00 10/18/18 08:59 09/23/18 08:04 Haloperidol Lactate (Haldol) 5 mg Q6H PRN IM Agitation 09/20/18 10:15 10/20/18 10:14 09/21/18 04:14 Lactulose (Cephulac) 30 gm THREE TIMES A DAY ORAL 09/20/18 18:00 10/18/18 08:59 09/23/18 08:05 Lorazepam (Ativan 2mg/ml 1ml) 1 mg Q2H PRN IV For Seizures or Withdrawal Sym 09/18/18 00:15 09/25/18 00:14 09/21/18 00:19 Midodrine (Pro-Amatine) 5 mg THREE TIMES A DAY ORAL 09/22/18 10:30 10/22/18 10:29 09/23/18 08:05 Ondansetron HCl (Zofran) 4 mg Q6H PRN IVP Nausea & Vomiting 09/18/18 00:15 10/18/18 00:14 Pantoprazole (Protonix) 40 mg EVERY 12 HOURS ORAL 09/18/18 09:00 10/18/18 08:59 09/23/18 08:05 Pentoxifylline (TRENtal) 400 mg THREE TIMES A DAY ORAL 09/20/18 18:00 10/20/18 17:59 Propranolol HCl (Inderal) 10 mg Q6HR ORAL 09/19/18 18:00 10/19/18 17:59 09/21/18 05:40 Rifaximin (Xifaxan) 550 mg EVERY 12 HOURS ORAL 09/19/18 21:00 09/26/18 20:59 09/23/18 08:04 Spironolactone (Aldactone) 25 mg EVERY 12 HOURS ORAL 09/18/18 09:00 10/18/18 08:59 09/22/18 20:41 Thiamine HCl (Vitamin B1) 100 mg DAILY ORAL 09/18/18 09:00 10/18/18 08:59 09/23/18 08:06 Problems: (1) Alcohol dependence Status: Resolved (2) Alcohol withdrawal Status: Resolved Neurological/Psychiatric: Reports: anxiety, depressed Allergies: Coded Allergies: No Known Allergies (Unverified , 09/17/18) Objective Data Height (Feet): 5 Height (Inches): 5.00 Weight (Pounds): 140 General Appearance: WD/WN, no apparent distress, alert Appearance: disheveled Behavior Mannerisms: good eye contact Mental Status Exam - Affect: constricted Mental Status Exam - Mood: no abnormalities Speech: clear Mental Status Exam - Thought P: logical Mental Status Exam - Suicidal: not present Assessment/Plan Problem List: (1) Alcohol dependence ICD Codes: F10.20 - Alcohol dependence, uncomplicated SNOMED: 07055788 (2) Alcohol withdrawal ICD Codes: F10.239 - Alcohol dependence with withdrawal, unspecified SNOMED: 911391848 Status: doing well, stable Plan: the pt is stable to be discharged librium 25mg po tid then librium 25mg bid script was given the pt was educated in regards to not using alcohol with Librium Kenrick Erickson MD Sep 23, 2018 12:12
--- NOTE | 2018-09-23 12:17 | Nephrology Progress Note ---
Assessment/Plan Problem List: (1) Electrolyte abnormality (2) Cirrhosis (3) Pancytopenia (4) Hyponatremia (5) Coagulopathy Assessment Coagulopathy due to liver pathology: INR 2.2 Thrombocytopenia due to cirrhosis mild anemia mild epistaxis mild HypoNatremia due to cirrhosis and low Albumin High LFTs abd Bili Plan lactulose mag supplement Midodrine protonix Aldactone per GI and Hematology Vit K 2gr Na diet Subjective ROS Limited/Unobtainable: No Objective Objective Last 24 Hour Vital Signs Date Time Temp Pulse Resp B/P (MAP) Pulse Ox O2 Delivery O2 Flow Rate FiO2 09/23/18 09:00 Room Air 09/23/18 08:05 93/53 09/23/18 08:00 99.0 92 18 107/67 (80) 99 09/23/18 08:00 99.0 92 18 107/67 (80) 99 09/23/18 05:44 111 93/53 09/23/18 04:00 103 09/23/18 04:00 99.5 111 18 92/53 (66) 99 09/23/18 00:00 98.2 89 16 96/55 (69) 99 09/23/18 00:00 89 96/55 09/23/18 00:00 72 09/22/18 21:00 Room Air 09/22/18 20:00 98.3 86 20 94/57 (69) 99 09/22/18 20:00 79 09/22/18 17:45 94/66 09/22/18 17:45 85 94/66 09/22/18 16:00 97.5 63 18 168/84 (112) 98 09/22/18 16:00 85 09/22/18 13:00 95/52 Intake and Output 09/22/18 09/23/18 18:59 06:59 Intake Total 760 ml 300 ml Output Total 400 ml Balance 760 ml -100 ml Intake Oral 360 ml 300 ml IV Total 400 ml Output Urine Total 400 ml # Voids 3 # Bowel Movements 3 1 Height (Feet): 5 Height (Inches): 5.00 Weight (Pounds): 140 General Appearance: no apparent distress Cardiovascular: tachycardia Respiratory/Chest: decreased breath sounds Abdomen: distended Objective no change Serg Baumann MD Sep 23, 2018 12:17
[2018-09-23 13:00] VITALS: BP 117/67
[2018-09-23] MEDS ORDERED: chlordiazePOXIDE 25mg Cap ORAL SCH (14:00)
--- NOTE | 2018-09-24 07:03 | Discharge Summary ---
Discharge Summary Discharge Summary _ DATE OF ADMISSION: 09/17/2018 DATE OF DISCHARGE: 09/23/2018 DISCHARGED BY: Dr Fink REASON FOR ADMISSION: 52 years old male with past medical history of gastritis, cirrhosis, alcohol abuse, presented to emergency department with intermittent nose bleeding for the last 5 days. Bleeding reported from the left turbinate. Bleeding was self-limited lasted about 10-15 minutes at a time ands topped with manual pressure. Patient reported decreased appetite . He denied nausea, vomiting. He denied fever chills . He denied abdominal or back pain. He denied neck pain , photophobia. He denied chest pain or shortness of breath. Upon evaluation laboratory workup revealed sodium 133 ,potassium 3.4. BUN 4 , creatinine 0.8. Glucose 173 . Total bilirubin 7.3, direct bilirubin 5.1. AST 459 ,ALT 204, alkaline phosphatase 147. No no leukocytosis, hemoglobin 11.2, hematocrit 31.9. Platelet count 27. INR 2.2 . EKG revealed sinus tachycardia , no acute ischemic changes. CT of the head revealed no evidence of acute intracranial pathology. Abdominal ultrasound demonstrated cholelithiasis and gallbladder sludge. No pericholecystic fluid. Sonographic Campa sign was reported as negative. No biliary ductal dilatation. Nodular contour of the liver suggested cirrhosis. Patent main portal vein. No evidence of hydronephrosis bilaterally . Patient admitted for further management with diagnosis of liver failure , cirrhosis , coagulopathy, epistaxis. CONSULTANTS: GI specialist Dr. Kirby labor economics teacher Dr. Baumann commercial fisherman/oncologist Dr. Storm psychiatrist [facility] COURSE: Patient admitted to telemetry floor. I specialist closely followed. Patient started on IV fluids with vitamins/banana bag. Ativan was on board as needed. Patient started on Librium initially 3 times a day , then decreased to 2 times a day , as per psychiatrist recommendation. Vitamin K was given 3 days INR decreased to 1.6. No need for fresh frozen plasma at this time , as per commercial fisherman , unless active bleeding or invasive procedure. Coagulopathy was related to cirrhosis. Platelet count was closely monitored. Epistaxis resolved. If recurs , consider platelet transfusion only if the platelet count below 50. Thrombocytopenia was due to cirrhosis. Prior to discharge platelet count 50. Hemoglobin hematocrit were closely monitored with goal to keep hemoglobin above 7. Hemoglobin remained at baseline. Prior to discharge hemoglobin 10.6 , hematocrit 31.9. Stool for occult blood was negative. Hepatitis panel was negative. HIV test was nonreactive. Patient received lactulose and Xifaxan for elevated ammonia. Ammonia trending down. Discriminant function calculated. Patient did not require steroid therapy at this time. Patient was on low-sodium diet. Bowel regimen instituted. GI prophylaxis with PPI provided. GI specialist, patient would benefit from outpatient endoscopy to rule out esophageal varices. Trental was added to existing regimen. LFT and bilirubin were closely monitored. GGT 1980. Total bilirubin trending down from initial 7.3- l down to 4.2; direct bilirubin trending down from 5.1 to 3.2. AST trended down from 459 to 169, ALT trended down from 204 to 121. Golf Cart Maker followed. Renal parameters and electrolytes were closely monitored. Electrolytes corrected as needed ( potassium and magnesium were replaced). Nephrotoxins were avoided. Hyponatremia workup was done. Per labor economics teacher mild hyponatremia was due to cirrhosis and low albumin. Patient started on midodrine for low blood pressure. Blood pressure was stable with midodrine. Aldactone added to existing regimen. Venous duplex bilateral lower extremity revealed no evidence of acute DVT. Supplemental oxygen was on board as needed to keep pulse oximetry above 92%. Pulse oximetry was stable on room air. Pot Liner follow. Counts were closely monitored. Per commercial fisherman, pancytopenia was related to underlying liver disease in setting of myelosuppression due to alcohol abuse. Peripheral smear did not show any significant abnormalities. Patient was counseled on alcohol cessation. Outpatient rehabilitation program list provided. Patient stabilized and was ready for discharge home FINAL DIAGNOSES: Alcohol withdrawal Liver failure Cirrhosis Coagulopathy Pancytopenia Thrombocytopenia Mild epistaxis-resolved Electrolyte abnormality ( hypomagnesemia, hypokalemia) Hyponatremia DISCHARGE MEDICATIONS: See Medication Reconciliation list. DISCHARGE INSTRUCTIONS: Patient was discharged home . Follow up with primary care provider in one week. I have been assigned to dictate discharge summary for this account. I was not involved in the patient's management. Elle Guzman NP Sep 24, 2018 07:03
--- NOTE | 2018-12-20 12:22 | Cardiology Report ---
APPROVED REPORT EKG Measurement Heart [id number] Accelerated Junctional rhythm with occasional premature ventricular complexes Abnormal ECG
== END 2018-09-23 13:07 | disposition home or self-care (01) | DRG 775 ==
LOC: EMR 18:00 → EDBEDREQ 21:26 → EDBEDREQSVC 21:26 → 2E 22:05 → EDBEDREQ 22:51 → 2E 23:54
DX: F10.239 Alcohol dependence with withdrawal, unspecified (principal); D61.818 Other pancytopenia; D68.4 Acquired coagulation factor deficiency; E83.42 Hypomagnesemia; E88.09 Other disorders of plasma-protein metabolism, not elsewhere classified; D69.6 Thrombocytopenia, unspecified; M62.82 Rhabdomyolysis; K70.30 Alcoholic cirrhosis of liver without ascites; E87.1 Hypo-osmolality and hyponatremia; R04.0 Epistaxis; E87.6 Hypokalemia; K72.90 Hepatic failure, unspecified without coma; E78.5 Hyperlipidemia, unspecified
CPT/HCPCS: 36415; 70450; 76700; 80048; 80053; 80061; 80076; 81001; 82140; 82248; 82270; 82533; 82607; 82746; 82977; 83036; 83735; 83880; 83930; 84100; 84300; 84443; 84550; 85007; 85025; 85610; 85730; 86140; 86703; 86705; 86709; 86803; 87340; 93005; 93970; 96361; 96374; 99285; C9399